=== PATIENT | male | born 1950 | race Caucasian/White ===

== ENCOUNTER → 2022-12-01 | Outpatient (CLI) | payer OTHER ==
[2022-12-01 13:24] LABS: INR 2.8 (<1.2)
== END | disposition home or self-care (01) ==
LOC: LABWHC1 11:24
PROVIDERS: ATTEND Student in an Organized Health Care Education/Training Program
DX: I48.91 Unspecified atrial fibrillation (principal)
CPT/HCPCS: 36415; 85610

== ENCOUNTER → 2023-06-01 | Outpatient (CLI) | payer MEDICARE ==
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
== END ==
LOC: 3 N SLEEP 10:09
PROVIDERS: ATTEND Internal Medicine Critical Care Medicine
DX: G47.33 Obstructive sleep apnea (adult) (pediatric) (principal); G47.36 Sleep related hypoventilation in conditions classified elsewhere; G47.10 Hypersomnia, unspecified; I48.91 Unspecified atrial fibrillation; E11.9 Type 2 diabetes mellitus without complications; I10 Essential (primary) hypertension; E78.5 Hyperlipidemia, unspecified; Z86.718 Personal history of other venous thrombosis and embolism; Z86.711 Personal history of pulmonary embolism

== ENCOUNTER → 2023-09-06 | Outpatient (CLI) | payer MEDICARE ==
[2023-09-06 15:54] LABS: NT-Pro-B-Type Natriuretic Pept 178 pg/mL (0-125)
[2023-09-06 16:17] LABS: HCT 41.5 % (39.6-50.0); HGB 13.7 g/dL (13.0-17.0); MCH 29.9 pg (27.0-32.0); MCV 90.6 FL (80.0-97.0); Mean Platelet Volume 11.4 FL (9.5-12.2); NRBC Per 100 WBC 0 X 10*3/uL (0.00-0.01); Platelet Count 295 X 10*3/uL (140-440); RBC 4.58 X 10*6/uL (4.40-5.60); RDW 13.5 % (11.5-14.5); WBC 10.49 X 10*3/uL (4.50-10.00)
[2023-09-06 16:32] LABS: Blood Urea Nitrogen 15.6 mg/dL (9.0-27.0); Chol/HDL Ratio 5.41 Ratio; Glucose 239 mg/dL (70-110); LDL Cholesterol,Calculated 129.5 mg/dL (0.0-131.0)
[2023-09-06 16:33] LABS: ALT 54 U/L (10-49); AST 45 U/L (14-35); Albumin/Globulin Ratio 1.05 Ratio (1.60-3.17); Alkaline Phosphatase 116 U/L (41-126); Calcium 9.2 mg/dL (8.7-10.3); Carbon Dioxide 24.6 mmol/L (21.6-31.8); Chloride 99 mmol/L (96-109); Globulin 3.8 g/dL (1.6-3.3); Potassium 4.1 mmol/L (3.5-5.5); Sodium 136 mmol/L (135-145); Total Bilirubin 0.3 mg/dL (0.3-1.2); Total Protein 7.8 g/dL (6.2-8.2)
== END | disposition home or self-care (01) ==
LOC: LABWHC1 08:35
PROVIDERS: ATTEND Student in an Organized Health Care Education/Training Program
DX: E11.9 Type 2 diabetes mellitus without complications (principal); I50.9 Heart failure, unspecified
CPT/HCPCS: 36415; 80053; 80061; 83036; 83880; 85027

== ENCOUNTER 2024-06-01 12:09 | Inpatient (IN) | payer MEDICARE ==
--- NOTE | 2024-06-01 12:28 | ED ---
General Adult HPI - General Chief complaint: Shortness of Breath Stated complaint: cough Time Seen by Provider: 06/01/24 12:12 Source: patient, RN notes reviewed Mode of arrival: EMS Limitations: no limitations - History of Present Illness Initial comments: Patient is a 74-year-old male presenting to the emergency department with cough and dyspnea. Patient presented from urgent care. Symptoms have been present for a couple of weeks. Patient has yellow/green sputum. No fevers at home. Patient did go to urgent care and was sent here secondary to concerns for high blood sugar. Patient states he has not been monitoring that lately. No chest pain. Patient denies any history of atrial fibrillation or dysrhythmia. - Related Data Allergies Allergy/AdvReac Type Severity Reaction Status Date / Time No Known Allergies Allergy Verified 06/01/24 12:21 Review of Systems ROS Statement: Those systems with pertinent positive or pertinent negative responses have been documented in the HPI. ROS Other: All systems not noted in ROS Statement are negative. Constitutional: Denies: fever, chills Eyes: Denies: eye pain ENT: Denies: ear pain Respiratory: Reports: as per HPI, cough, dyspnea Cardiovascular: Denies: chest pain, palpitations Endocrine: Reports: fatigue Gastrointestinal: Denies: abdominal pain Musculoskeletal: Denies: back pain Past Medical History Past Medical History: Diabetes Mellitus, Hyperlipidemia, Hypertension Past Surgical History: Heart Catheterization Additional Past Surgical History / Comment(s): AICD Smoking Status: Former smoker General Exam Limitations: no limitations General appearance: alert, in no apparent distress Head exam: Present: normocephalic Eye exam: Present: normal appearance Neck exam: Present: normal inspection Respiratory exam: Present: normal lung sounds bilaterally. Absent: respiratory distress Cardiovascular Exam: Present: tachycardia, irregular rhythm GI/Abdominal exam: Present: soft. Absent: tenderness Extremities exam: Present: normal inspection. Absent: pedal edema, calf tenderness Neurological exam: Present: alert Psychiatric exam: Present: normal affect, normal mood Skin exam: Present: normal color Course Vital Signs 06/01/24 06/01/24 06/01/24 12:16 12:21 12:53 Temperature 99.6 F 99.6 F Pulse Rate 118 H 98 Respiratory 20 16 18 Rate Blood Pressure 145/90 138/76 O2 Sat by Pulse 88 L 91 L Oximetry 06/01/24 13:21 Temperature 98.1 F Pulse Rate 100 Respiratory 20 Rate Blood Pressure 130/76 O2 Sat by Pulse 98 Oximetry Medical Decision Making - Medical Decision Making phototypesetting equipment monitor shows A-fib with RVR. Patient placed on the monitor secondary to tachycardia and hypoxia and to monitor for dysrhythmia. Repeat EKG interpreted by myself still shows A-fib with a rate of 106. Normal axis. Normal QRS. No acute ST change.. PVC present. Was pt. sent in by a medical professional or institution (, PA, COMMERCIAL LOAN ANALYST, urgent care, hospital, or longterm...) When possible be specific @ -No Did you speak to anyone other than the patient for history (EMS, parent, family, police, friend...)? What history was obtained from this source @ -No Did you review nursing and triage notes (agree or disagree)? Why? @ -I reviewed and agree with nursing and triage notes Were old charts reviewed (outside hosp., previous admission, EMS record, old EKG, old radiological studies, urgent care reports/EKG's, longterm records)? Report findings @ -No significant old charts available Differential Diagnosis (chest pain, altered mental status, abdominal pain women, abdominal pain men, vaginal bleeding, weakness, fever, dyspnea, syncope, headache, dizziness, GI bleed, back pain, seizure, CVA, palpatations, mental health, musculoskeletal)? @ -Differential Dyspnea: Coronary syndrome, arrhythmia, tamponade, asthma, COPD, pulmonary embolism, pneumonia, pneumothorax, pulmonary effusion, anaphylaxis, diabetic ketoacidosis, flailed chest, pulmonary contusion, diaphragmatic rupture, anemia, neuromuscular, this is not meant to be an all-inclusive list. EKG interpreted by me (3pts min.). @ -As above X-rays interpreted by me (1pt min.). @ -X-ray shows right-sided infiltrate CT interpreted by me (1pt min.). @ -None done U/S interpreted by me (1pt. min.). @ -None done What testing was considered but not performed or refused? (CT, X-rays, U/S, labs)? Why? @ -None What meds were considered but not given or refused? Why? @ -None Did you discuss the management of the patient with other professionals (professionals i.e. , JOELLE, COMMERCIAL LOAN ANALYST, lab, RT, psych nurse, licensed social worker, shellac polisher, teacher, ict customer support officer, registered nurse hh case manager)? Give summary @ -Case was discussed with Dr. Hart who will admit his patient Was smoking cessation discussed for >3mins.? @ -No Was critical care preformed (if so, how long)? @ -31 minutes critical care Were there social determinants of health that impacted care today? How? (Homelessness, low income, unemployed, alcoholism, drug addiction, transportatio n, low edu. Level, literacy, decrease access to med. care, [facility]cc, rehab)? @ -No Was there de-escalation of care discussed even if they declined (Discuss DNR or withdrawal of care, Hospice)? DNR status @ -No What co-morbidities impacted this encounter? (DM, HTN, Smoking, COPD, CAD, Cancer, CVA, ARF, Chemo, Hep., AIDS, mental health diagnosis, sleep apnea, morbid obesity)? @ -History of diabetes. History of cardiac disease Was patient admitted / discharged? Hospital course, mention meds given and route, prescriptions, significant lab abnormalities, going to OR and other pertinent info. @ -Patient presents with cough and shortness of breath. Patient has positive flu however elevated white blood cell count and pneumonia concerning for potential combined bacterial infection and sepsis. Blood culture and lactic acid have been ordered. IV antibiotics will be ordered. Patient also has new onset A-fib. Patient is coagulopathic and Coumadin will be held. Patient is on Cardizem drip. Cardiac consult will be placed. Patient is also hyperglycemic and will be provided insulin. Undiagnosed new problem with uncertain prognosis? @ -No Drug Therapy requiring intensive monitoring for toxicity (Heparin, Nitro, Insulin, Cardizem)? @ -Cardizem drip Were any procedures done? @ -No Diagnosis/symptom? @ -New onset A-fib with RVR, influenza, pneumonia, sepsis, hyperglycemia Acute, or Chronic, or Acute on Chronic? @ -Acute, acute, acute, acute, acute, acute on chronic Uncomplicated (without systemic symptoms) or Complicated (systemic symptoms)? @ -Complicated with concern for sepsis and new onset Side effects of treatment? @ -No Exacerbation, Progression, or Severe Exacerbation? @ -No Poses a threat to life or bodily function? How? (Chest pain, [place], [place], pneumonia, PE, COPD, DKA, ARF, appy, cholecystitis, CVA, Diverticulitis, Homicidal, Suicidal, threat to staff... and all critical care pts) @ -Pulmonary and cardiac function - Lab Data Result diagrams: 06/01/24 12:23 06/01/24 12:23 Lab Results 06/01/24 06/01/24 06/01/24 Range/Units 12:23 12:23 12:23 WBC 20.5 H (3.8-10.6) k/uL RBC 4.22 L (4.30-5.90) m/uL Hgb 12.8 L (13.0-17.5) gm/dL Hct 39.1 (39.0-53.0) % MCV 92.6 (80.0-100.0) fL MCH 30.2 (25.0-35.0) pg MCHC 32.6 (31.0-37.0) g/dL RDW 13.1 (11.5-15.5) % Plt Count 574 H (150-450) k/uL MPV 7.5 Neutrophils % 86 % Lymphocytes % 9 % Monocytes % 3 % Eosinophils % 1 % Basophils % 0 % Neutrophils # 17.7 H (1.3-7.7) k/uL Lymphocytes # 1.8 (1.0-4.8) k/uL Monocytes # 0.6 (0-1.0) k/uL Eosinophils # 0.1 (0-0.7) k/uL Basophils # 0.1 (0-0.2) k/uL PT 66.7 H (10.0-12.5) sec INR 6.7 H* (<1.2) APTT 50.3 H (22.0-30.0) sec Sodium 134 L (137-145) mmol/L Potassium 4.1 (3.5-5.1) mmol/L Chloride 95 L (98-107) mmol/L Carbon Dioxide 27 (22-30) mmol/L Anion Gap 12 mmol/L BUN 22 H (9-20) mg/dL Creatinine 0.74 (0.66-1.25) mg/dL Est GFR (CKD-EPI)AfAm >90 (>60 ml/min/1.73 sqM) Est GFR (CKD-EPI)NonAf >90 (>60 ml/min/1.73 sqM) Glucose 443 H (74-99) mg/dL Plasma Lactic Acid Quentin (0.7-2.0) mmol/L Calcium 8.7 (8.4-10.2) mg/dL Magnesium 1.5 L (1.6-2.3) mg/dL Total Bilirubin 0.5 (0.2-1.3) mg/dL AST 26 (17-59) U/L ALT 24 (4-49) U/L Alkaline Phosphatase 127 H (38-126) U/L Troponin I (0.000-0.034) ng/mL NT-Pro-B Natriuret Pep 782 pg/mL Total Protein 7.2 (6.3-8.2) g/dL Albumin 3.6 (3.5-5.0) g/dL Urine Color Urine Appearance (Clear) Urine pH (5.0-8.0) Ur Specific [place] (1.001-1.035) Urine Protein (Negative) Urine Glucose (UA) (Negative) Urine Ketones (Negative) Urine Blood (Negative) Urine Nitrite (Negative) Urine Bilirubin (Negative) Urine Urobilinogen (<2.0) mg/dL Ur Leukocyte Esterase (Negative) Urine RBC (0-5) /hpf Urine WBC (0-5) /hpf Ur Squamous Epith Cells (0-4) /hpf Acetone, Qual Negative (Negative) Influenza Type A (PCR) (Not Detectd) Influenza Type B (PCR) (Not Detectd) RSV (PCR) (Not Detectd) SARS-CoV-2 (PCR) (Not Detectd) 06/01/24 06/01/24 06/01/24 Range/Units 12:23 12:23 12:23 WBC (3.8-10.6) k/uL RBC (4.30-5.90) m/uL Hgb (13.0-17.5) gm/dL Hct (39.0-53.0) % MCV (80.0-100.0) fL MCH (25.0-35.0) pg MCHC (31.0-37.0) g/dL RDW (11.5-15.5) % Plt Count (150-450) k/uL MPV Neutrophils % % Lymphocytes % % Monocytes % % Eosinophils % % Basophils % % Neutrophils # (1.3-7.7) k/uL Lymphocytes # (1.0-4.8) k/uL Monocytes # (0-1.0) k/uL Eosinophils # (0-0.7) k/uL Basophils # (0-0.2) k/uL PT (10.0-12.5) sec INR (<1.2) APTT (22.0-30.0) sec Sodium (137-145) mmol/L Potassium (3.5-5.1) mmol/L Chloride (98-107) mmol/L Carbon Dioxide (22-30) mmol/L Anion Gap mmol/L BUN (9-20) mg/dL Creatinine (0.66-1.25) mg/dL Est GFR (CKD-EPI)AfAm (>60 ml/min/1.73 sqM) Est GFR (CKD-EPI)NonAf (>60 ml/min/1.73 sqM) Glucose (74-99) mg/dL Plasma Lactic Acid Quentin 1.8 (0.7-2.0) mmol/L Calcium (8.4-10.2) mg/dL Magnesium (1.6-2.3) mg/dL Total Bilirubin (0.2-1.3) mg/dL AST (17-59) U/L ALT (4-49) U/L Alkaline Phosphatase (38-126) U/L Troponin I <0.012 (0.000-0.034) ng/mL NT-Pro-B Natriuret Pep pg/mL Total Protein (6.3-8.2) g/dL Albumin (3.5-5.0) g/dL Urine Color Urine Appearance (Clear) Urine pH (5.0-8.0) Ur Specific [place] (1.001-1.035) Urine Protein (Negative) Urine Glucose (UA) (Negative) Urine Ketones (Negative) Urine Blood (Negative) Urine Nitrite (Negative) Urine Bilirubin (Negative) Urine Urobilinogen (<2.0) mg/dL Ur Leukocyte Esterase (Negative) Urine RBC (0-5) /hpf Urine WBC (0-5) /hpf Ur Squamous Epith Cells (0-4) /hpf Acetone, Qual (Negative) Influenza Type A (PCR) Detected A (Not Detectd) Influenza Type B (PCR) Not Detected (Not Detectd) RSV (PCR) Not Detected (Not Detectd) SARS-CoV-2 (PCR) Not Detected (Not Detectd) 06/01/24 Range/Units 12:37 WBC (3.8-10.6) k/uL RBC (4.30-5.90) m/uL Hgb (13.0-17.5) gm/dL Hct (39.0-53.0) % MCV (80.0-100.0) fL MCH (25.0-35.0) pg MCHC (31.0-37.0) g/dL RDW (11.5-15.5) % Plt Count (150-450) k/uL MPV Neutrophils % % Lymphocytes % % Monocytes % % Eosinophils % % Basophils % % Neutrophils # (1.3-7.7) k/uL Lymphocytes # (1.0-4.8) k/uL Monocytes # (0-1.0) k/uL Eosinophils # (0-0.7) k/uL Basophils # (0-0.2) k/uL PT (10.0-12.5) sec INR (<1.2) APTT (22.0-30.0) sec Sodium (137-145) mmol/L Potassium (3.5-5.1) mmol/L Chloride (98-107) mmol/L Carbon Dioxide (22-30) mmol/L Anion Gap mmol/L BUN (9-20) mg/dL Creatinine (0.66-1.25) mg/dL Est GFR (CKD-EPI)AfAm (>60 ml/min/1.73 sqM) Est GFR (CKD-EPI)NonAf (>60 ml/min/1.73 sqM) Glucose (74-99) mg/dL Plasma Lactic Acid Quentin (0.7-2.0) mmol/L Calcium (8.4-10.2) mg/dL Magnesium (1.6-2.3) mg/dL Total Bilirubin (0.2-1.3) mg/dL AST (17-59) U/L ALT (4-49) U/L Alkaline Phosphatase (38-126) U/L Troponin I (0.000-0.034) ng/mL NT-Pro-B Natriuret Pep pg/mL Total Protein (6.3-8.2) g/dL Albumin (3.5-5.0) g/dL Urine Color Light Yellow Urine Appearance Clear (Clear) Urine pH 5.5 (5.0-8.0) Ur Specific [place] 1.025 (1.001-1.035) Urine Protein Trace H (Negative) Urine Glucose (UA) 4+ H (Negative) Urine Ketones Negative (Negative) Urine Blood Small H (Negative) Urine Nitrite Negative (Negative) Urine Bilirubin Negative (Negative) Urine Urobilinogen <2.0 (<2.0) mg/dL Ur Leukocyte Esterase Negative (Negative) Urine RBC 17 H (0-5) /hpf Urine WBC <1 (0-5) /hpf Ur Squamous Epith Cells <1 (0-4) /hpf Acetone, Qual (Negative) Influenza Type A (PCR) (Not Detectd) Influenza Type B (PCR) (Not Detectd) RSV (PCR) (Not Detectd) SARS-CoV-2 (PCR) (Not Detectd) Critical Care Time Critical Care Time: Yes Disposition Clinical Impression: Pneumonia Disposition: ADMITTED IP TO THIS [facility] Condition: Serious Is patient prescribed a controlled substance at d/c from ED?: No Referrals: Melissa Hart MD [Primary Care Provider] - 1-2 days Time of Disposition: 14:26
[2024-06-01] MEDS: ACETAMINOPHEN TAB 500 MG TAB PO STA (12:43)
[2024-06-01] MEDS: DILTIAZEM 125 MG in SODIUM CHLORIDE 0.9% 100 ML IV SCH (12:44)
[2024-06-01 12:58] LABS: Basophils # (A) 0.1 k/uL (0-0.2); Basophils % (A) 0 %; Eosinophils # (A) 0.1 k/uL (0-0.7); Eosinophils % (A) 1 %; HCT 39.1 % (39.0-53.0); HGB 12.8 gm/dL (13.0-17.5); Lymphocytes # (A) 1.8 k/uL (1.0-4.8); Lymphocytes % (A) 9 %; MCH 30.2 pg (25.0-35.0); MCHC 32.6 g/dL (31.0-37.0); MCV 92.6 fL (80.0-100.0); Mean Platelet Volume 7.5; Monocytes # (A) 0.6 k/uL (0-1.0); Monocytes % (A) 3 %; Neutrophils # (A) 17.7 k/uL (1.3-7.7); Neutrophils % (A) 86 %; Platelet Count 574 k/uL (150-450); RBC 4.22 m/uL (4.30-5.90); RDW 13.1 % (11.5-15.5); WBC 20.5 k/uL (3.8-10.6)
[2024-06-01 13:06] LABS: Appearance,Urine Clear (Clear); Bilirubin,Urine Negative (Negative); Blood,Urine Small (Negative); Color,Urine Light Yellow; Glucose,Urine (UA) 4+ (Negative); Ketones,Urine Negative (Negative); Leukocyte Esterase,Urine Negative (Negative); Nitrite,Urine Negative (Negative); PH, Urine 5.5 (5.0-8.0); Protein,Urine Trace (Negative); RBC,Urine 17 /hpf (0-5); Specific Gravity,Urine 1.025 (1.001-1.035); Squamous Epithelial Cell,Urine <1 /hpf (0-4); Urobilinogen,Urine <2.0 mg/dL (<2.0); WBC,Urine <1 /hpf (0-5)
[2024-06-01 13:14] LABS: Partial Thromboplastin Time 50.3 sec (22.0-30.0); Prothrombin Time 66.7 sec (10.0-12.5)
--- NOTE | 2024-06-01 13:14 | XR ---
EXAMINATION TYPE: XR chest 1V portable DATE OF EXAM: 06/01/2024 1:08 PM COMPARISON: None TECHNIQUE: XR chest 1V portable Portable AP radiograph of the chest. CLINICAL INDICATION:Male, 74 years old with history of difficulty breathing; FINDINGS: Lungs/Pleura: No pleural effusion or pneumothorax. Patchy right lower lung airspace opacities. Pulmonary vascularity: Unremarkable. Heart/mediastinum: Cardiomediastinal silhouette is prominent in size. Single-lead cardiac conduction device overlying the left hemithorax with lead projecting over the right ventricle. Musculoskeletal: No acute osseous pathology. IMPRESSION: Patchy right lower lung airspace opacities concerning for pneumonia versus atelectasis. [facility], , 06/01/2024 1:11 PM
[2024-06-01 13:22] LABS: INR 6.7 (<1.2)
[2024-06-01 13:31] LABS: ALT 24 U/L (4-49); AST 26 U/L (17-59); African American GFR (CKD) >90 (>60 ml/min/1.73 sqM); Albumin 3.6 g/dL (3.5-5.0); Alkaline Phosphatase 127 U/L (38-126); Anion Gap 12 mmol/L; Blood Urea Nitrogen 22 mg/dL (9-20); Calcium 8.7 mg/dL (8.4-10.2); Carbon Dioxide 27 mmol/L (22-30); Chloride 95 mmol/L (98-107); Glucose 443 mg/dL (74-99); Magnesium 1.5 mg/dL (1.6-2.3); Non-African American GFR(CKD) >90 (>60 ml/min/1.73 sqM); Potassium 4.1 mmol/L (3.5-5.1); Sodium 134 mmol/L (137-145); Total Bilirubin 0.5 mg/dL (0.2-1.3); Total Protein 7.2 g/dL (6.3-8.2)
[2024-06-01 13:35] LABS: NT-Pro-B-Type Natriuretic Pept 782 pg/mL
[2024-06-01] MEDS ORDERED: PNEUMONIA PROTOCOL UTILIZED 1 EACH MISC PO PRN (14:26)
[2024-06-01] MEDS ORDERED: IPRATROPIUM-ALBUTEROL 3 ML NEB INHALATION PRN (14:26)
[2024-06-01] MEDS: INSULIN REGULAR 100 UNIT/ML VIAL (IM/SQ) SQ ONE (14:54)
[2024-06-01] MEDS: AZITHROMYCIN 500 MG in SODIUM CHLORIDE 0.9% 250 ML IVPB STA (14:55)
[2024-06-01] MEDS: SODIUM CHLORIDE 0.9% 1,000 ML IV SCH (15:05)
--- NOTE | 2024-06-01 16:42 | P.CNPUL ---
History of Present Illness Consult date: 06/01/24 Requesting physician: Melissa Hart Reason for consult: dyspnea, cough, abnormal CXR/CT Chief complaint: Shortness of breath, cough, congestion History of present illness: This is a very pleasant 74-year-old male patient with a known history of atrial fibrillation and maintained on warfarin, AICD placement, hypertension, hyperlipidemia, diabetes mellitus. He has a 3-week history of increasing shortness of breath, cough and congestion. He presented here to the emergency room with worsening shortness of breath. X-ray does reveal a patchy right lower lobe airspace opacity concerning for pneumonia versus atelectasis. He did have some atrial fibrillation with has been initiated on Cardizem drip at 5 mg/h. White count 20.5. Hemoglobin 12.8. Platelets 574. INR 6.7. Sodium 134. Potassium 4.1. Bicarb 27. BUN 22. Creatinine 0.7. Glucose 443. Troponin negative x 1. proBNP 782. Urinalysis with 4+ ketones. Acetone negative. Viral screening positive for influenza A. He is seen today in consultation in the emergency department. He is currently sitting up on a stretcher. Awake and alert in mild respiratory distress. He has a loose nonproductive cough. He is maintaining O2 saturations in the 90s on 2 L/min per nasal cannula. He has been afebrile. Hemodynamically stable. Review of Systems REVIEW OF SYSTEMS: CONSTITUTIONAL: Denies any recent significant weight loss or weight gain. EYES: Denies change in vision. EARS, NOSE, MOUTH, THROAT: Denies headaches, denies sore throat. CARDIOVASCULAR: Denies chest pain, palpitations or syncopal episodes. RESPIRATORY: Positive for shortness of breath, cough, congestion no hemoptysis. GASTROINTESTINAL: Denies change in appetite, denies abdominal pain GENITOURINARY: Denies hematuria, denies infections. MUSKULOSKELETAL: Denies pain, denies swelling. INTEGUMENTARY: Denies rash, denies eczema. NEUROLOGICAL: Denies recent memory loss, no recent seizure activity. PSYCHIATRIC: Denies anxiety, denies depression. HEMATOLOGIC/LYMPHATIC: Denies anemia, denies enlarged lymph nodes. Past Medical History Past Medical History: Diabetes Mellitus, Hyperlipidemia, Hypertension Past Surgical History: Heart Catheterization Additional Past Surgical History / Comment(s): AICD Smoking Status: Former smoker Medications and Allergies Home Medications Medication Instructions Recorded Confirmed Type Atorvastatin [Lipitor] 80 mg PO DAILY 06/01/24 06/01/24 History Losartan [Cozaar] 50 mg PO DAILY 06/01/24 06/01/24 History Metoprolol Succinate (ER) [Toprol 25 mg PO DAILY 06/01/24 06/01/24 History Xl] Multivitamins, Thera [Multivitamin 1 tab PO DAILY 06/01/24 06/01/24 History (formulary)] Semaglutide [Ozempic] 0.5 mg SQ TH 06/01/24 06/01/24 History Sotalol [Betapace] 80 mg PO BID 06/01/24 06/01/24 History Warfarin [Coumadin] 5 mg PO W/SUPPER 06/01/24 06/01/24 History amLODIPine [Norvasc] 10 mg PO DAILY 06/01/24 06/01/24 History glipiZIDE 5 mg PO AC-BID 06/01/24 06/01/24 History hydroCHLOROthiazide [Hydrodiuril] 50 mg PO DAILY 06/01/24 06/01/24 History metFORMIN HCL [Glucophage] 1,000 mg PO BID-W/MEALS 06/01/24 06/01/24 History Allergies Allergy/AdvReac Type Severity Reaction Status Date / Time No Known Allergies Allergy Verified 06/01/24 14:51 Physical Exam Vitals: Vital Signs Temp Pulse Resp BP Pulse Ox 06/01/24 15:35 98.4 F 81 19 106/60 93 L 06/01/24 15:00 100 20 166/72 93 L 06/01/24 13:21 98.1 F 100 20 130/76 98 06/01/24 12:53 18 06/01/24 12:21 99.6 F 98 16 138/76 91 L 06/01/24 12:16 99.6 F 118 H 20 145/90 88 L Intake and Output 06/01/24 06/01/24 06/01/24 06:59 14:59 22:59 Other: Weight 104.326 kg GENERAL EXAM: Alert, pleasant 74-year-old male, on 2 L nasal cannula, fairly comfortable in no apparent distress. HEAD: Normocephalic. EYES: Normal reaction of pupils, equal size. NOSE: Clear with pink turbinates. THROAT: No erythema or exudates. NECK: No masses, no JVD. CHEST: No chest wall deformity. Device palpated under left clavicle. LUNGS: Equal air entry with bilateral scattered rhonchi. CVS: S1 and S2 normal with no audible murmur, irregular rhythm. ABDOMEN: No hepatosplenomegaly, normal bowel sounds, no guarding or rigidity. SPINE: No scoliosis or deformity SKIN: No rashes CENTRAL NERVOUS SYSTEM: No focal deficits, tone is normal in all 4 extremities. EXTREMITIES: There is no peripheral edema. No clubbing, no cyanosis. Peripheral pulses are intact. Results - Laboratory Findings CBC and BMP: 06/01/24 12:23 06/01/24 12:23 PT/INR, D-dimer PT 66.7 sec (10.0-12.5) H 06/01/24 12:23 INR 6.7 (<1.2) H* 06/01/24 12:23 Abnormal lab findings: Abnormal Labs 06/01/24 06/01/24 06/01/24 12:23 12:23 12:23 WBC 20.5 H RBC 4.22 L Hgb 12.8 L Plt Count 574 H Neutrophils # 17.7 H PT 66.7 H INR 6.7 H* APTT 50.3 H Sodium 134 L Chloride 95 L BUN 22 H Glucose 443 H Magnesium 1.5 L Alkaline Phosphatase 127 H Urine Protein Urine Glucose (UA) Urine Blood Urine RBC Influenza Type A (PCR) 06/01/24 06/01/24 12:23 12:37 WBC RBC Hgb Plt Count Neutrophils # PT INR APTT Sodium Chloride BUN Glucose Magnesium Alkaline Phosphatase Urine Protein Trace H Urine Glucose (UA) 4+ H Urine Blood Small H Urine RBC 17 H Influenza Type A (PCR) Detected A - Diagnostic Findings Chest x-ray: image reviewed Assessment and Plan Assessment: Acute hypoxic respiratory failure secondary to an acute influenza A infection complicated by possible patchy early infiltrate in the right lower lobe. Procalcitonin pending Acute influenza A infection however symptoms started as long as 3 weeks ago Leukocytosis secondary to above Acute on chronic atrial fibrillation with a rapid ventricular response, currently on a Cardizem drip at 5 mg an hour Diabetes mellitus with hyperglycemia, 4+ ketones acetone negative Coagulopathy with supra therapeutic INR at 6.7 History of AICD placement Hypertension Hyperlipidemia Plan: The patient was seen and evaluated Chest x-ray, labs and medications reviewed Outside the window for Tamiflu Continue ceftriaxone and azithromycin for now Check a procalcitonin Continued on a Cardizem drip. Maintained on warfarin, currently on hold for INR 6.3 Resume the patient's home medications Titrate the FiO2 as tolerated We will continue to follow and make further recommendations based on his clinical status I have personally seen and examined the patient, performed the documentation and the assessment and plan as written. Number of minutes spent on the visit: 20 Dictation was produced using [employer] dictation software. Please excuse any grammatical, word or spelling errors. This patient was seen in coordination with the pulmonary/critical care physician, Dr. Perez. He did spend greater than 50% of the time evaluating, examining and developing the plan of care. He agrees to the above HPI, physical exam, assessment and plan of care as dictated by the nurse practitioner. Time with Patient: Greater than 30
[2024-06-01 17:53] LABS: Glucose,Whole Blood 313 mg/dL (70-110)
[2024-06-01] MEDS: glipiZIDE 5 MG TAB PO SCH (18:10)
[2024-06-01] MEDS: metFORMIN 500 MG TAB PO SCH (18:10)
[2024-06-01 20:17] LABS: Glucose,Whole Blood 214 mg/dL (70-110)
[2024-06-01] MEDS: MELATONIN 3 MG TABLET PO SCH (21:47)
[2024-06-01] MEDS: SOTALOL 80 MG TAB PO SCH (21:48)
[2024-06-01] MEDS: guaiFENesin-DM 100-10MG/5ML 10 ML CUP PO PRN (23:09)
[2024-06-02 05:34] LABS: Glucose,Whole Blood 204 mg/dL (70-110)
--- NOTE | 2024-06-02 07:40 | XR ---
EXAMINATION TYPE: XR chest 2V DATE OF EXAM: 06/02/2024 6:58 AM COMPARISON: Chest x-ray from one day earlier CLINICAL INDICATION: Male, 74 years old with history of pneumonia, TECHNIQUE: Frontal and lateral views of the chest are obtained. FINDINGS: There is patchy bibasilar opacity on current study. Persistent mild cardiomegaly with [place] lead pacemaker/AICD. Osseous structures are intact. IMPRESSION: Bibasilar acute infiltrates and/or atelectasis present currently. [facility], , 06/02/2024 7:38 AM
[2024-06-02] MEDS ORDERED: METOPROLOL SUCCINATE (ER) 25 MG TAB.ER.24H PO SCH (09:00)
[2024-06-02] MEDS: amLODIPine 10 MG TAB PO SCH (09:01)
[2024-06-02] MEDS: METOPROLOL SUCCINATE (ER) 50 MG TAB.ER.24H PO SCH (09:01)
[2024-06-02] MEDS: LOSARTAN 50 MG TAB PO SCH (09:01)
[2024-06-02] MEDS: MULTIVITAMINS, THERA 1 EACH TAB PO SCH (09:03)
[2024-06-02] MEDS: ATORVASTATIN 80 MG TAB PO SCH (09:03)
[2024-06-02 09:45] LABS: INR 4.1 (<1.2); Prothrombin Time 40.9 sec (10.0-12.5)
[2024-06-02 11:14] LABS: Glucose,Whole Blood 325 mg/dL (70-110)
--- NOTE | 2024-06-02 12:15 | P.CRDCN ---
History of Present Illness History of present illness: HISTORY OF PRESENT ILLNESS: This is a 74-year-old male with a past medical history significant for paroxysmal atrial fibrillation, pulmonary embolism, cardiac arrest s/p secondary prevention ICD, hypertension, hyperlipidemia, and diabetes. Patient follows in the office with Dr. Sigala. We have been asked to see the patient in consultation for atrial fibrillation. Patient examined at the bedside. Patient presented to the hospital with a chief complaint of shortness of breath. Patient states he has been feeling short of breath for the past couple weeks. He denies having any chest pain or pressure. He denies having any palpitations. The patient was found to be positive for influenza. Pulmonary is also following for possible early right lower lobe pneumonia. He remains on antibiotics. He is maintaining sinus mechanism this morning with PACs and PVCs. Patient was found to have supratherapeutic INR of 6.7. His Coumadin remains on hold. When the patient was seen in the office in March he was prescribed Xarelto as he stated his insurance had improved and could afford it. However the patient states he never started taking this medication and continued with his warfarin. DIAGNOSTICS: - EKG reveals reveals sinus mechanism with PACs - Chest xray patchy right lower lung airspace opacities concerning for pneumonia versus atelectasis - Laboratory data: WBC 20.5. Hemoglobin 12.8. Platelet count 574. INR 6.7. Repeat 4.1. Sodium 134. Potassium 4.1. BUN 22. Creatinine 0.74. Troponin negative x 1. proBNP 782. - Current home cardiac medications include Lipitor 80 mg daily, amlodipine 10 mg daily, hydrochlorothiazide 50 mg daily, metoprolol succinate 25 mg daily, sotalol 80 mg twice a day, losartan 50 mg daily, warfarin 5 mg daily - Most recent echocardiogram obtained in March 2023 revealed ejection fraction 55%, grade 1 diastolic dysfunction, mild to moderate MR and mild to moderate AR - Cardiac catheterization history: Unknown REVIEW OF SYSTEMS: At the time of my exam: CONSTITUTIONAL: Denies fever or chills. HEENT: Denies blurred vision, vision changes, or eye pain. Denies hemoptysis CARDIOVASCULAR: Denies chest pain. Denies orthopnea. Denies PND. Denies palpitations RESPIRATORY: Denies shortness of breath. GASTROINTESTINAL: Denies abdominal pain. Denies nausea or vomiting. HEMATOLOGIC: Denies bleeding disorders. GENITOURINARY: Denies any blood in urine. SKIN: Denies pruitis. Denies rash. PHYSICAL EXAM: VITAL SIGNS: Reviewed. GENERAL: Well-developed in no acute distress. HEENT: Head is normocephalic. Pupils are equal, round. Sclerae anicteric. Mucous membranes of the mouth are moist. Neck supple. No JVD or thyromegaly LUNGS: Respirations even and unlabored. Lungs essentially clear to auscultation bilaterally. HEART: Regular rate and rhythm. S1 and S2 heard. ABDOMEN: Soft. Nondistended. Nontender. EXTREMITIES: Normal range of motion. No clubbing or cyanosis. Peripheral pulses intact. No lower extremity edema NEUROLOGIC: Awake and alert. Oriented x 3. ASSESSMENT: Shortness of breath Acute influenza Possible right lower lobe pneumonia Paroxysmal atrial fibrillation, maintaining sinus mechanism with PACs Supratherapeutic INR History of pulmonary embolism/DVT History of cardiopulmonary arrest, 2019, secondary to massive PE Status post secondary prevention ICD Hypertension Hyperlipidemia Obstructive sleep apnea Diabetes Obesity: BMI 32.1 PLAN: Obtain 2D echo to assess cardiac structure and function Discontinue IV Cardizem Continue metoprolol succinate. Increase dosage to 50 mg daily for optimal heart rate control Continue to hold Coumadin. Monitor INR. Begin Xarelto or Eliquis when coagulopathy resolves Continue telemetry monitoring Further recommendations pending patient course Nurse practitioner note has been reviewed by physician. Signing provider agrees with the documented findings, assessment, and plan of care documented by [employer] as a scribe. Past Medical History Past Medical History: Diabetes Mellitus, Hyperlipidemia, Hypertension Additional Past Medical History / Comment(s): Blood clot post-op History of Any Multi-Drug Resistant Organisms: None Reported Past Surgical History: Heart Catheterization Additional Past Surgical History / Comment(s): AICD Past Anesthesia/Blood Transfusion Reactions: No Reported Reaction Past Psychological History: No Psychological Hx Reported Smoking Status: Former smoker Medications and Allergies Home Medications Medication Instructions Recorded Confirmed Type Atorvastatin [Lipitor] 80 mg PO DAILY 06/01/24 06/01/24 History Losartan [Cozaar] 50 mg PO DAILY 06/01/24 06/01/24 History Metoprolol Succinate (ER) [Toprol 25 mg PO DAILY 06/01/24 06/01/24 History Xl] Multivitamins, Thera [Multivitamin 1 tab PO DAILY 06/01/24 06/01/24 History (formulary)] Semaglutide [Ozempic] 0.5 mg SQ TH 06/01/24 06/01/24 History Sotalol [Betapace] 80 mg PO BID 06/01/24 06/01/24 History Warfarin [Coumadin] 5 mg PO W/SUPPER 06/01/24 06/01/24 History amLODIPine [Norvasc] 10 mg PO DAILY 06/01/24 06/01/24 History glipiZIDE 5 mg PO AC-BID 06/01/24 06/01/24 History hydroCHLOROthiazide [Hydrodiuril] 50 mg PO DAILY 06/01/24 06/01/24 History metFORMIN HCL [Glucophage] 1,000 mg PO BID-W/MEALS 06/01/24 06/01/24 History Allergies Allergy/AdvReac Type Severity Reaction Status Date / Time No Known Allergies Allergy Verified 06/01/24 14:51 Physical Exam Vitals: Vital Signs Temp Pulse Pulse Resp BP BP Pulse Ox 06/02/24 08:57 98.2 F 71 16 117/60 93 L 06/02/24 04:00 97.7 F 97 16 129/72 93 L 06/02/24 00:00 99.1 F 94 16 130/65 92 L 06/01/24 21:30 98.5 F 116 H 16 135/77 96 06/01/24 18:27 96.1 F L 74 16 158/85 93 L 06/01/24 17:29 99.4 F 88 19 138/61 95 06/01/24 15:35 98.4 F 81 19 106/60 93 L 06/01/24 15:00 100 20 166/72 93 L 06/01/24 13:21 98.1 F 100 20 130/76 98 06/01/24 12:53 18 06/01/24 12:21 99.6 F 98 16 138/76 91 L 06/01/24 12:16 99.6 F 118 H 20 145/90 88 L Intake and Output 06/01/24 06/02/24 06/02/24 22:59 06:59 14:59 Other: Voiding Method Toilet Urinal # Voids 2 Weight 104.326 kg 101.5 kg Results 06/01/24 12:23 06/01/24 12:23 Cardiac Enzymes 06/01/24 06/01/24 Range/Units 12:23 12:23 AST 26 (17-59) U/L Troponin I <0.012 (0.000-0.034) ng/mL Coagulation 06/01/24 06/02/24 Range/Units 12:23 09:11 PT 66.7 H 40.9 H (10.0-12.5) sec APTT 50.3 H (22.0-30.0) sec CBC 06/01/24 Range/Units 12:23 WBC 20.5 H (3.8-10.6) k/uL RBC 4.22 L (4.30-5.90) m/uL Hgb 12.8 L (13.0-17.5) gm/dL Hct 39.1 (39.0-53.0) % Plt Count 574 H (150-450) k/uL Comprehensive Metabolic Panel 06/01/24 Range/Units 12:23 Sodium 134 L (137-145) mmol/L Potassium 4.1 (3.5-5.1) mmol/L Chloride 95 L (98-107) mmol/L Carbon Dioxide 27 (22-30) mmol/L BUN 22 H (9-20) mg/dL Creatinine 0.74 (0.66-1.25) mg/dL Glucose 443 H (74-99) mg/dL Calcium 8.7 (8.4-10.2) mg/dL AST 26 (17-59) U/L ALT 24 (4-49) U/L Alkaline Phosphatase 127 H (38-126) U/L Total Protein 7.2 (6.3-8.2) g/dL Albumin 3.6 (3.5-5.0) g/dL Current Medications Generic Name Dose Route Start Last Admin Trade Name Freq PRN Reason Stop Dose Admin Albuterol/Ipratropium 3 ml 06/01/24 14:26 Ipratropium-Albuterol 3 Ml Neb INHALATION RT-Q4H PRN shortness of breath Amlodipine Besylate 10 mg 06/02/24 09:00 06/02/24 09:01 Amlodipine 10 Mg Tab PO 10 mg DAILY ABIMAEL Administration Atorvastatin Calcium 80 mg 06/02/24 09:00 06/02/24 09:03 Atorvastatin 80 Mg Tab PO 80 mg DAILY ABIMAEL Administration Azithromycin 500 mg 06/02/24 15:00 Azithromycin 500 Mg Tab PO 06/03/24 15:01 DAILY@1500 ABIMAEL Protocol Glipizide 5 mg 06/01/24 17:30 06/02/24 06:25 Glipizide 5 Mg Tab PO 5 mg AC-BID ABIMAEL Administration Guaifenesin/Dextromethorphan 10 ml 06/01/24 18:15 06/01/24 23:09 Guaifenesin-Dm 100-10mg/5ml 10 Ml Cup PO 10 ml Q6HR PRN Administration Cough Hydrochlorothiazide 50 mg 06/02/24 09:00 06/02/24 09:01 Hydrochlorothiazide 50 Mg Tab PO 50 mg DAILY ABIMAEL Administration Sodium Chloride 1,000 mls @ 100 mls/hr 06/01/24 14:30 06/02/24 04:19 Saline 0.9% IV Not Given .Q10H ABIMAEL Ceftriaxone Sodium 2 gm/ 50 mls @ 100 mls/hr 06/02/24 09:00 06/02/24 09:01 Sodium Chloride IVPB 06/05/24 09:29 100 mls/hr Q24HR ABIMAEL Administration Protocol Losartan Potassium 50 mg 06/02/24 09:00 06/02/24 09:01 Losartan 50 Mg Tab PO 50 mg DAILY ABIMAEL Administration Melatonin 6 mg 06/01/24 21:00 06/01/24 21:47 Melatonin 3 Mg Tablet PO 6 mg HS ABIMAEL Administration Metformin HCl 1,000 mg 06/01/24 17:30 06/02/24 06:24 Metformin 500 Mg Tab PO 1,000 mg BID-W/MEALS ABIMAEL Administration Metoprolol Succinate 50 mg 06/02/24 09:00 06/02/24 09:01 Metoprolol Succinate (Er) 50 Mg Tab.Er.24h PO 50 mg DAILY ABIMAEL Administration Miscellaneous Information 1 each 06/01/24 14:26 Pneumonia Protocol Utilized 1 Each Misc PO ONCE PRN Per Protocol Multivitamins 1 each 06/02/24 09:00 06/02/24 09:03 Multivitamins, Thera 1 Each Tab PO 1 each DAILY ABIMAEL Administration Sotalol HCl 80 mg 06/01/24 21:00 06/02/24 09:01 Sotalol 80 Mg Tab PO 80 mg BID ABIMAEL Administration Intake and Output 01/03/25 01/04/25 01/04/25 22:59 06:59 14:59 Other: Voiding Method Toilet Urinal # Voids 2 Weight 104.326 kg 101.5 kg 06/01/24 12:23 06/01/24 12:23
--- NOTE | 2024-06-02 12:55 | P.PN ---
Subjective Progress Note Date: 06/02/24 Principal diagnosis: Pneumonia. This is a very pleasant 74-year-old male patient with a known history of atrial fibrillation and maintained on warfarin, AICD placement, hypertension, hyperlipidemia, diabetes mellitus. He has a 3-week history of increasing shortness of breath, cough and congestion. He presented here to the emergency room with worsening shortness of breath. X-ray does reveal a patchy right lower lobe airspace opacity concerning for pneumonia versus atelectasis. He did have some atrial fibrillation with has been initiated on Cardizem drip at 5 mg/h. White count 20.5. Hemoglobin 12.8. Platelets 574. INR 6.7. Sodium 134. Potassium 4.1. Bicarb 27. BUN 22. Creatinine 0.7. Glucose 443. Troponin negative x 1. proBNP 782. Urinalysis with 4+ ketones. Acetone negative. Viral screening positive for influenza A. He is seen today in consultation in the emergency department. He is currently sitting up on a stretcher. Awake and alert in mild respiratory distress. He has a loose nonproductive cough. He is maintaining O2 saturations in the 90s on 2 L/min per nasal cannula. He has been afebrile. Hemodynamically stable. Progress note dated June 02, 2024. 74-year-old male seen in consultation yesterday. Please see the note above. Th e patient was admitted with a diagnosis of influenza, and possible pneumonia. He is currently on room air. He is not receiving any IV fluids. He did test positive for influenza A. His procalcitonin level was 0.11. Antibiotics will be discontinued. The patient is feeling well, without complaints. He states he is feeling much better. Today's blood work includes a glucose of 325. PT was 40.9 with an INR of 4.1. Blood cultures were apparently positive cocci in clusters. Bacteria has yet to be identified. Chest x-ray demonstrates bibasilar infiltrates, and/or atelectasis. Objective - Vital Signs Vital signs: Vital Signs Temp 98.4 F 06/02/24 11:05 Pulse 60 06/02/24 11:05 Resp 16 06/02/24 11:05 BP 103/58 06/02/24 11:05 Pulse Ox 96 06/02/24 11:05 FiO2 Intake & Output 01/08/2106/02/24 06/02/24 18:59 06:59 18:59 Weight 104.326 kg 101.5 kg Other: Voiding Method Toilet Toilet Urinal Urinal # Voids 2 1 - Exam No acute distress, oriented 3. HEENT examination is grossly unremarkable. Mucous membranes are moist. No oral lesions. Neck supple. Full range of motion. No adenopathy thyromegaly or neck vein di stention. Cardiovascular examination reveals an irregular rhythm and rate. S1-S2 normal. No S3 or S4. No discernible murmur noted. Lungs reveal clear breath sounds. Breath sounds are equal bilaterally. No adventitious lung sounds including wheezes rhonchi or crackles. Abdomen soft bowel sounds are heard. No masses or tenderness. Extremities are intact. No cyanosis clubbing or edema. Skin is without rash or lesion. Neurologic examination is brief but nonfocal. - Labs CBC & Chem 7: 06/01/24 12:23 06/01/24 12:23 Labs: Abnormal Lab Results - Last 24 Hours (Table) 06/01/24 06/01/24 06/01/24 Range/Units 12:23 12:23 12:23 WBC 20.5 H (3.8-10.6) k/uL RBC 4.22 L (4.30-5.90) m/uL Hgb 12.8 L (13.0-17.5) gm/dL Plt Count 574 H (150-450) k/uL Neutrophils # 17.7 H (1.3-7.7) k/uL PT 66.7 H (10.0-12.5) sec INR 6.7 H* (<1.2) APTT 50.3 H (22.0-30.0) sec Sodium 134 L (137-145) mmol/L Chloride 95 L (98-107) mmol/L BUN 22 H (9-20) mg/dL Glucose 443 H (74-99) mg/dL POC Glucose (mg/dL) (70-110) mg/dL Magnesium 1.5 L (1.6-2.3) mg/dL Alkaline Phosphatase 127 H (38-126) U/L Urine Protein (Negative) Urine Glucose (UA) (Negative) Urine Blood (Negative) Urine RBC (0-5) /hpf Influenza Type A (PCR) (Not Detectd) 06/01/24 06/01/24 06/01/24 Range/Units 12:23 12:37 17:52 WBC (3.8-10.6) k/uL RBC (4.30-5.90) m/uL Hgb (13.0-17.5) gm/dL Plt Count (150-450) k/uL Neutrophils # (1.3-7.7) k/uL PT (10.0-12.5) sec INR (<1.2) APTT (22.0-30.0) sec Sodium (137-145) mmol/L Chloride (98-107) mmol/L BUN (9-20) mg/dL Glucose (74-99) mg/dL POC Glucose (mg/dL) 313 H (70-110) mg/dL Magnesium (1.6-2.3) mg/dL Alkaline Phosphatase (38-126) U/L Urine Protein Trace H (Negative) Urine Glucose (UA) 4+ H (Negative) Urine Blood Small H (Negative) Urine RBC 17 H (0-5) /hpf Influenza Type A (PCR) Detected A (Not Detectd) 06/01/24 06/02/24 06/02/24 Range/Units 20:15 05:33 09:11 WBC (3.8-10.6) k/uL RBC (4.30-5.90) m/uL Hgb (13.0-17.5) gm/dL Plt Count (150-450) k/uL Neutrophils # (1.3-7.7) k/uL PT 40.9 H (10.0-12.5) sec INR 4.1 H (<1.2) APTT (22.0-30.0) sec Sodium (137-145) mmol/L Chloride (98-107) mmol/L BUN (9-20) mg/dL Glucose (74-99) mg/dL POC Glucose (mg/dL) 214 H 204 H (70-110) mg/dL Magnesium (1.6-2.3) mg/dL Alkaline Phosphatase (38-126) U/L Urine Protein (Negative) Urine Glucose (UA) (Negative) Urine Blood (Negative) Urine RBC (0-5) /hpf Influenza Type A (PCR) (Not Detectd) 01/04/25 Range/Units 11:13 WBC (3.8-10.6) k/uL RBC (4.30-5.90) m/uL Hgb (13.0-17.5) gm/dL Plt Count (150-450) k/uL Neutrophils # (1.3-7.7) k/uL PT (10.0-12.5) sec INR (<1.2) APTT (22.0-30.0) sec Sodium (137-145) mmol/L Chloride (98-107) mmol/L BUN (9-20) mg/dL Glucose (74-99) mg/dL POC Glucose (mg/dL) 325 H (70-110) mg/dL Magnesium (1.6-2.3) mg/dL Alkaline Phosphatase (38-126) U/L Urine Protein (Negative) Urine Glucose (UA) (Negative) Urine Blood (Negative) Urine RBC (0-5) /hpf Influenza Type A (PCR) (Not Detectd) Microbiology - Last 24 Hours (Table) 06/01/24 12:23 Blood Culture Gram Stain - Preliminary Blood Blood Culture - Preliminary Molecular ID Assessment and Plan Assessment: Acute hypoxic respiratory failure secondary to an acute influenza A infection. Doubt bacterial pneumonia. Leukocytosis secondary to above. Acute on chronic atrial fibrillation with a rapid ventricular response. Diabetes mellitus with hyperglycemia. Coagulopathy with supra therapeutic INR at 6.7. History of AICD placement. Hypertension. Hyperlipidemia. Plan: Plan dated June 02, 2024. The patient is seen in room 363. The patient is on room air. No IV fluids. The patient has a procalcitonin level of 0.11. Antibiotics are discontinued. He did test positive for influenza A, but he has been having symptoms for a number of days now. Blood cultures apparently are showing gram-positive cocci in clusters. And may be a contaminant. We will await identification. Labs, x- rays, and medications are reviewed. Prognosis is guarded. We will continue to follow the patient, make appropriate recommendations. The patient is a DO NOT RESUSCITATE patient. Time with Patient: Less than 30
--- NOTE | 2024-06-02 13:27 | P.HPIM ---
History of Present Illness H&P Date: 06/02/24 Andrez Cobb, is a 74-year-old male who presented to [facility] emergency room with a chief complaint of cough and worsening shortness of breath He was evaluated in the emergency room vital examination on presentation revealed temperature 97.7 pulse 97 respiration 16 blood pressure 129/72 pulse ox 93% on room air Laboratory data revealed a white blood count of 20.5 hemoglobin 12.8 platelet count 578 INR was elevated at 6.7 sodium 134 potassium 4.1 chloride 95 CO2 27 BUN 22 creatinine 0.74 influenza A PCR was positive Testing in the emergency room revealed chest x-ray done in the emergency room revealed patchy right lower lung airspace opacity concerning for pneumonia Patient was admitted to medical floor for further evaluation and treatment Past Medical History Past Medical History: Diabetes Mellitus, Hyperlipidemia, Hypertension Additional Past Medical History / Comment(s): Blood clot post-op History of Any Multi-Drug Resistant Organisms: None Reported Past Surgical History: Heart Catheterization Additional Past Surgical History / Comment(s): AICD Past Anesthesia/Blood Transfusion Reactions: No Reported Reaction Past Psychological History: No Psychological Hx Reported Smoking Status: Former smoker Medications and Allergies Home Medications Medication Instructions Recorded Confirmed Type Atorvastatin [Lipitor] 80 mg PO DAILY 06/01/24 06/01/24 History Losartan [Cozaar] 50 mg PO DAILY 06/01/24 06/01/24 History Metoprolol Succinate (ER) [Toprol 25 mg PO DAILY 06/01/24 06/01/24 History Xl] Multivitamins, Thera [Multivitamin 1 tab PO DAILY 06/01/24 06/01/24 History (formulary)] Semaglutide [Ozempic] 0.5 mg SQ TH 06/01/24 06/01/24 History Sotalol [Betapace] 80 mg PO BID 06/01/24 06/01/24 History Warfarin [Coumadin] 5 mg PO W/SUPPER 06/01/24 06/01/24 History amLODIPine [Norvasc] 10 mg PO DAILY 06/01/24 06/01/24 History glipiZIDE 5 mg PO AC-BID 06/01/24 06/01/24 History hydroCHLOROthiazide [Hydrodiuril] 50 mg PO DAILY 06/01/24 06/01/24 History metFORMIN HCL [Glucophage] 1,000 mg PO BID-W/MEALS 06/01/24 06/01/24 History Allergies Allergy/AdvReac Type Severity Reaction Status Date / Time No Known Allergies Allergy Verified 06/01/24 14:51 Physical Exam Vitals: Vital Signs Temp Pulse Pulse Resp BP BP Pulse Ox 06/02/24 08:57 98.2 F 71 16 117/60 93 L 06/02/24 04:00 97.7 F 97 16 129/72 93 L 06/02/24 00:00 99.1 F 94 16 130/65 92 L 06/01/24 21:30 98.5 F 116 H 16 135/77 96 06/01/24 18:27 96.1 F L 74 16 158/85 93 L 06/01/24 17:29 99.4 F 88 19 138/61 95 06/01/24 15:35 98.4 F 81 19 106/60 93 L 06/01/24 15:00 100 20 166/72 93 L 06/01/24 13:21 98.1 F 100 20 130/76 98 06/01/24 12:53 18 06/01/24 12:21 99.6 F 98 16 138/76 91 L 06/01/24 12:16 99.6 F 118 H 20 145/90 88 L Intake and Output 06/01/24 06/02/24 06/02/24 22:59 06:59 14:59 Other: Voiding Method Toilet Toilet Urinal Urinal # Voids 2 Weight 104.326 kg 101.5 kg In general patient is alert and oriented -3 in no distress HEENT head normocephalic and atraumatic Neck is supple no JVD no goiter no lymphadenopathy no carotid bruit Chest examination revealed bibasilar crackles no wheezing Cardiac exam reveals regular heart sounds S1 and S2 no gallops no murmurs Abdomen is soft nontender no organomegaly with normal bowel sounds Extremity exam reveals no edema no cyanosis or clubbing Neurological examination reveals no gross focal deficits Results CBC & Chem 7: 06/01/24 12:23 06/01/24 12:23 Labs: Abnormal Lab Results - Last 24 Hours (Table) 06/01/24 06/01/24 06/01/24 Range/Units 12:23 12:23 12:23 WBC 20.5 H (3.8-10.6) k/uL RBC 4.22 L (4.30-5.90) m/uL Hgb 12.8 L (13.0-17.5) gm/dL Plt Count 574 H (150-450) k/uL Neutrophils # 17.7 H (1.3-7.7) k/uL PT 66.7 H (10.0-12.5) sec INR 6.7 H* (<1.2) APTT 50.3 H (22.0-30.0) sec Sodium 134 L (137-145) mmol/L Chloride 95 L (98-107) mmol/L BUN 22 H (9-20) mg/dL Glucose 443 H (74-99) mg/dL POC Glucose (mg/dL) (70-110) mg/dL Magnesium 1.5 L (1.6-2.3) mg/dL Alkaline Phosphatase 127 H (38-126) U/L Urine Protein (Negative) Urine Glucose (UA) (Negative) Urine Blood (Negative) Urine RBC (0-5) /hpf Influenza Type A (PCR) (Not Detectd) 06/01/24 06/01/24 06/01/24 Range/Units 12:23 12:37 17:52 WBC (3.8-10.6) k/uL RBC (4.30-5.90) m/uL Hgb (13.0-17.5) gm/dL Plt Count (150-450) k/uL Neutrophils # (1.3-7.7) k/uL PT (10.0-12.5) sec INR (<1.2) APTT (22.0-30.0) sec Sodium (137-145) mmol/L Chloride (98-107) mmol/L BUN (9-20) mg/dL Glucose (74-99) mg/dL POC Glucose (mg/dL) 313 H (70-110) mg/dL Magnesium (1.6-2.3) mg/dL Alkaline Phosphatase (38-126) U/L Urine Protein Trace H (Negative) Urine Glucose (UA) 4+ H (Negative) Urine Blood Small H (Negative) Urine RBC 17 H (0-5) /hpf Influenza Type A (PCR) Detected A (Not Detectd) 06/01/24 06/02/24 06/02/24 Range/Units 20:15 05:33 09:11 WBC (3.8-10.6) k/uL RBC (4.30-5.90) m/uL Hgb (13.0-17.5) gm/dL Plt Count (150-450) k/uL Neutrophils # (1.3-7.7) k/uL PT 40.9 H (10.0-12.5) sec INR 4.1 H (<1.2) APTT (22.0-30.0) sec Sodium (137-145) mmol/L Chloride (98-107) mmol/L BUN (9-20) mg/dL Glucose (74-99) mg/dL POC Glucose (mg/dL) 214 H 204 H (70-110) mg/dL Magnesium (1.6-2.3) mg/dL Alkaline Phosphatase (38-126) U/L Urine Protein (Negative) Urine Glucose (UA) (Negative) Urine Blood (Negative) Urine RBC (0-5) /hpf Influenza Type A (PCR) (Not Detectd) Microbiology - Last 24 Hours (Table) 06/01/24 12:23 Blood Culture Gram Stain - Preliminary Blood Blood Culture - Preliminary Molecular ID Thrombosis Risk Factor Assmnt - Choose All That Apply Each Factor Represents 1 point: Obesity (BMI >25) Each Risk Factor Represents 2 Points: Age 61-74 years Each Risk Factor Represents 3 Points: History of DVT/PE Thrombosis Risk Factor Assessment Total Risk Factor Score: 6 Thrombosis Risk Factor Assessment Level: High Risk Assessment and Plan Plan: Acute influenza A infection Acute hypoxic respiratory failure Bibasilar lung infiltrates, possible secondary bacterial pneumonia Leukocytosis Atrial fibrillation with rapid ventricular response on presentation requiring Cardizem drip Underlying history of diabetes mellitus with hypercalcemia and positive ketones Coagulopathy with supratherapeutic INR of 6.7 on presentation Underlying history of hypertension Underlying history of hyperlipidemia Underlying history of cardiac arrhythmia with history of AICD placement Previous history of pulmonary embolism Previous history of cardiopulmonary arrest in 2019 secondary to massive pulmonary embolism Underlying history of obstructive sleep apnea Underlying history of morbid obesity BMI of 32.1 Patient was seen and examined Home medications reviewed and reordered, insulin sliding scale was added Coumadin is on hold due to elevated INR will monitor daily At this time patient was started on IV antibiotics Procalcitonin level is pending Cardiology and pulmonary are following
[2024-06-02] MEDS ORDERED: AZITHROMYCIN 500 MG TAB PO SCH (15:00)
[2024-06-02 16:19] LABS: Glucose,Whole Blood 330 mg/dL (70-110)
[2024-06-02] MEDS: INSULIN ASPART (NovoLOG) 100 UNIT/ML VIAL SQ SCH (16:23)
[2024-06-02 20:31] LABS: Glucose,Whole Blood 203 mg/dL (70-110)
[2024-06-02] MEDS: ACETAMINOPHEN TAB 325 MG TAB PO PRN (23:18)
[2024-06-03 06:01] LABS: Glucose,Whole Blood 225 mg/dL (70-110)
[2024-06-03 08:41] LABS: Prothrombin Time 30.2 sec (10.0-12.5)
--- NOTE | 2024-06-03 10:30 | P.PN ---
Subjective Progress Note Date: 06/03/24 Andrez Cobb, is a 74-year-old male who presented to [facility] emergency room with a chief complaint of cough and worsening shortness of breath He was evaluated in the emergency room vital examination on presentation revealed temperature 97.7 pulse 97 respiration 16 blood pressure 129/72 pulse ox 93% on room air Laboratory data revealed a white blood count of 20.5 hemoglobin 12.8 platelet count 578 INR was elevated at 6.7 sodium 134 potassium 4.1 chloride 95 CO2 27 BUN 22 creatinine 0.74 influenza A PCR was positive Testing in the emergency room revealed chest x-ray done in the emergency room revealed patchy right lower lung airspace opacity concerning for pneumonia Patient was admitted to medical floor for further evaluation and treatment On 06/03/2024 patient is alert and oriented x 3. Patient noted to have positive blood culture. Infectious disease services have been consulted cardiology and pulmonary services following. At this time patient denies chest pain or shor tness of breath. Patient denies nausea vomiting or diarrhea. Patient denies any urinary burning or frequency. Current vital signs temp 97.9, heart 64, respiratory rate 20, blood pressure 111/61 with a pulse ox of 95% on room air Objective - Vital Signs Vital signs: Vital Signs Temp 97.9 F 06/03/24 07:34 Pulse 64 06/03/24 07:34 Resp 20 06/03/24 07:34 BP 111/61 06/03/24 07:34 Pulse Ox 95 06/03/24 07:34 FiO2 Intake & Output 06/02/24 06/03/24 06/03/24 18:59 06:59 18:59 Intake Total 360 90 Balance 360 90 Weight 100.8 kg Intake: Oral 360 90 Other: Voiding Method Toilet Toilet Toilet Urinal Urinal Urinal # Voids 2 1 1 # Bowel Movements 1 - Exam In general patient is alert and oriented -3 in no distress HEENT head normocephalic and atraumatic Neck is supple no JVD no goiter no lymphadenopathy no carotid bruit Chest examination revealed bibasilar crackles no wheezing Cardiac exam reveals regular heart sounds S1 and S2 no gallops no murmurs Abdomen is soft nontender no organomegaly with normal bowel sounds Extremity exam reveals no edema no cyanosis or clubbing Neurological examination reveals no gross focal deficits - Labs CBC & Chem 7: 06/01/24 12:23 06/01/24 12:23 Labs: Abnormal Lab Results - Last 24 Hours (Table) 06/02/24 06/02/24 06/02/24 Range/Units 11:13 16:17 20:29 PT (10.0-12.5) sec INR (<1.2) POC Glucose (mg/dL) 325 H 330 H 203 H (70-110) mg/dL 06/03/24 06/03/24 Range/Units 06:00 07:31 PT 30.2 H (10.0-12.5) sec INR 3.0 H (<1.2) POC Glucose (mg/dL) 225 H (70-110) mg/dL Microbiology - Last 24 Hours (Table) 06/01/24 12:23 Blood Culture Gram Stain - Preliminary Blood Blood Culture - Preliminary Staphylococcus hominis Molecular ID 06/02/24 09:10 Gram Stain - Preliminary Sputum Assessment and Plan Plan: Acute influenza A infection Acute hypoxic respiratory failure Bibasilar lung infiltrates, possible secondary bacterial pneumonia Leukocytosis with positive blood culture Atrial fibrillation with rapid ventricular response on presentation requiring Cardizem drip Underlying history of diabetes mellitus with hypercalcemia and positive ketones Coagulopathy with supratherapeutic INR of 6.7 on presentation Underlying history of hypertension Underlying history of hyperlipidemia Underlying history of cardiac arrhythmia with history of AICD placement Previous history of pulmonary embolism Previous history of cardiopulmonary arrest in 2019 secondary to massive pulmonary embolism Underlying history of obstructive sleep apnea Underlying history of morbid obesity BMI of 32.1 Patient was seen and examined Home medications reviewed and reordered, insulin sliding scale was added Coumadin is on hold due to elevated INR will monitor daily At this time patient was started on IV antibiotics Procalcitonin level is pending Cardiology and pulmonary are following
[2024-06-03 11:48] LABS: Glucose,Whole Blood 202 mg/dL (70-110)
--- NOTE | 2024-06-03 12:22 | P.PN ---
Subjective Progress Note Date: 06/03/24 Principal diagnosis: Pneumonia. This is a very pleasant 74-year-old male patient with a known history of atrial fibrillation and maintained on warfarin, AICD placement, hypertension, hyperlipidemia, diabetes mellitus. He has a 3-week history of increasing shortness of breath, cough and congestion. He presented here to the emergency room with worsening shortness of breath. X-ray does reveal a patchy right lower lobe airspace opacity concerning for pneumonia versus atelectasis. He did have some atrial fibrillation with has been initiated on Cardizem drip at 5 mg/h. White count 20.5. Hemoglobin 12.8. Platelets 574. INR 6.7. Sodium 134. Potassium 4.1. Bicarb 27. BUN 22. Creatinine 0.7. Glucose 443. Troponin negative x 1. proBNP 782. Urinalysis with 4+ ketones. Acetone negative. Viral screening positive for influenza A. He is seen today in consultation in the emergency department. He is currently sitting up on a stretcher. Awake and alert in mild respiratory distress. He has a loose nonproductive cough. He is maintaining O2 saturations in the 90s on 2 L/min per nasal cannula. He has been afebrile. Hemodynamically stable. Progress note dated June 02, 2024. 74-year-old male seen in consultation yesterday. Please see the note above. Th e patient was admitted with a diagnosis of influenza, and possible pneumonia. He is currently on room air. He is not receiving any IV fluids. He did test positive for influenza A. His procalcitonin level was 0.11. Antibiotics will be discontinued. The patient is feeling well, without complaints. He states he is feeling much better. Today's blood work includes a glucose of 325. PT was 40.9 with an INR of 4.1. Blood cultures were apparently positive cocci in clusters. Bacteria has yet to be identified. Chest x-ray demonstrates bibasilar infiltrates, and/or atelectasis. Progress note dated June 03, 2024. 74-year-old male seen in room 363. The patient is on room air. He is not receiving any IV fluids. He tested positive for influenza A. His procalcitonin level was 0.11. He has Staphylococcus hominis in his blood, which may be a contaminant. Blood cultures are being repeated. Clinically, the patient is very stable. Current labs include a glucose of 202, PT of 30.2, and an INR of 3.0. Objective - Vital Signs Vital signs: Vital Signs Temp 98.1 F 06/03/24 11:12 Pulse 79 06/03/24 11:12 Resp 20 06/03/24 11:12 BP 112/64 06/03/24 11:12 Pulse Ox 94 L 06/03/24 11:12 FiO2 Intake & Output 06/02/24 06/03/24 06/03/24 18:59 06:59 18:59 Intake Total 360 90 Balance 360 90 Weight 100.8 kg Intake: Oral 360 90 Other: Voiding Method Toilet Toilet Toilet Urinal Urinal Urinal # Voids 2 1 1 # Bowel Movements 1 - Exam No acute distress, oriented 3. HEENT examination is grossly unremarkable. Mucous membranes are moist. No oral lesions. Neck supple. Full range of motion. No adenopathy thyromegaly or neck vein distention. Cardiovascular examination reveals an irregular rhythm and rate. S1-S2 normal. No S3 or S4. No discernible murmur noted. Lungs reveal clear breath sounds. Breath sounds are equal bilaterally. No adventitious lung sounds including wheezes rhonchi or crackles. Abdomen soft bowel sounds are heard. No masses or tenderness. Extremities are intact. No cyanosis clubbing or edema. Skin is without rash or lesion. Neurologic examination is brief but nonfocal. - Labs CBC & Chem 7: 06/01/24 12:23 06/01/24 12:23 Labs: Abnormal Lab Results - Last 24 Hours (Table) 06/02/24 06/02/24 06/03/24 Range/Units 16:17 20:29 06:00 PT (10.0-12.5) sec INR (<1.2) POC Glucose (mg/dL) 330 H 203 H 225 H (70-110) mg/dL 06/03/24 06/03/24 Range/Units 07:31 11:44 PT 30.2 H (10.0-12.5) sec INR 3.0 H (<1.2) POC Glucose (mg/dL) 202 H (70-110) mg/dL Microbiology - Last 24 Hours (Table) 06/02/24 09:10 Gram Stain - Preliminary Sputum Sputum Culture - Preliminary 06/01/24 12:23 Blood Culture Gram Stain - Preliminary Blood Blood Culture - Preliminary Staphylococcus hominis Molecular ID Assessment and Plan Assessment: Acute hypoxic respiratory failure secondary to an acute influenza A infection, much improved. Doubt bacterial pneumonia. Leukocytosis secondary to above. Acute on chronic atrial fibrillation with a rapid ventricular response. Diabetes mellitus with hyperglycemia. Coagulopathy with supra therapeutic INR at 6.7. History of AICD placement. Hypertension. Hyperlipidemia. Plan: Plan dated June 02, 2024. The patient is seen in room 363. The patient is on room air. No IV fluids. The patient has a procalcitonin level of 0.11. Antibiotics are discontinued. He did test positive for influenza A, but he has been having symptoms for a number of days now. Blood cultures apparently are showing gram-positive cocci in clusters. And may be a contaminant. We will await identification. Labs, x- rays, and medications are reviewed. Prognosis is guarded. We will continue to follow the patient, make appropriate recommendations. The patient is a DO NOT RESUSCITATE patient. Plan dated June 03, 2024. The patient is seen today in room 363. The patient was on room air. He is not receiving any IV fluids. His procalcitonin level is normal at 0.11. He did test positive on admission to influenza A. Blood cultures are positive for Staphylococcus hominis. Those cultures are being repeated. Labs, x-rays, medications are reviewed. Clinically, the patient is very stable and would like to be discharged. He is a DO NOT RESUSCITATE patient. We will continue to follow. Time with Patient: Less than 30
--- NOTE | 2024-06-03 13:40 | P.PN ---
Subjective HISTORY OF PRESENT ILLNESS: This is a 74-year-old male with a past medical history significant for paroxysmal atrial fibrillation, pulmonary embolism, cardiac arrest s/p secondary prevention ICD, hypertension, hyperlipidemia, and diabetes. Patient follows in the office with Dr. Sigala. We have been asked to see the patient in consultation for atrial fibrillation. Patient examined at the bedside. Patient presented to the hospital with a chief complaint of shortness of breath. Patient states he has been feeling short of breath for the past couple weeks. He denies having any chest pain or pressure. He denies having any palpitations. The patient was found to be positive for influenza. Pulmonary is also following for possible early right lower lobe pneumonia. He remains on antibiotics. He is maintaining sinus mechanism this morning with PACs and PVCs. Patient was found to have supratherapeutic INR of 6.7. His Coumadin remains on hold. When the patient was seen in the office in March he was prescribed Xarelto as he stated his insurance had improved and could afford it. However the patient states he never started taking this medication and continued with his warfarin. DIAGNOSTICS: - EKG reveals reveals sinus mechanism with PACs - Chest xray patchy right lower lung airspace opacities concerning for pneumonia versus atelectasis - Laboratory data: WBC 20.5. Hemoglobin 12.8. Platelet count 574. INR 6.7. Repeat 4.1. Sodium 134. Potassium 4.1. BUN 22. Creatinine 0.74. Troponin negative x 1. proBNP 782. - Current home cardiac medications include Lipitor 80 mg daily, amlodipine 10 mg daily, hydrochlorothiazide 50 mg daily, metoprolol succinate 25 mg daily, sotalol 80 mg twice a day, losartan 50 mg daily, warfarin 5 mg daily - Most recent echocardiogram obtained in March 2023 revealed ejection fraction 55%, grade 1 diastolic dysfunction, mild to moderate MR and mild to moderate AR - Cardiac catheterization history: Unknown 06/03/2024 Patient examined this morning the bedside. Patient currently denies chest pain or pressure. He denies shortness of breath. He reports having some mild dizziness. Telemetry reveals sinus mechanism. INR today 3.0. Blood cultures are positive for gram-positive cocci in clusters PHYSICAL EXAM: VITAL SIGNS: Reviewed. GENERAL: Well-developed in no acute distress. HEENT: Head is normocephalic. Pupils are equal, round. Sclerae anicteric. Mucous membranes of the mouth are moist. Neck supple. No JVD or thyromegaly LUNGS: Respirations even and unlabored. Lungs essentially clear to auscultation bilaterally. HEART: Regular rate and rhythm. S1 and S2 heard. ABDOMEN: Soft. Nondistended. Nontender. EXTREMITIES: Normal range of motion. No clubbing or cyanosis. Peripheral pulses intact. No lower extremity edema NEUROLOGIC: Awake and alert. Oriented x 3. ASSESSMENT: Shortness of breath Acute influenza Possible right lower lobe pneumonia Paroxysmal atrial fibrillation, maintaining sinus mechanism with PACs Supratherapeutic INR Bacteremia, blood cultures positive for gram-positive cocci in clusters History of pulmonary embolism/DVT History of cardiopulmonary arrest, 2019, secondary to massive PE Status post secondary prevention ICD Hypertension Hyperlipidemia Obstructive sleep apnea Diabetes Obesity: BMI 32.1 PLAN: 2D echo obtained and read. However, report not available at this time. Will contact echo team tomorrow for final report. Continue to hold Coumadin. Monitor INR. Begin Xarelto or Eliquis when coagulopathy resolves. ([facility] Continue telemetry monitoring Further recommendations pending patient course Nurse practitioner note has been reviewed by physician. Signing provider agrees with the documented findings, assessment, and plan of care documented by [employer] as a scribe. Objective - Vital Signs Vital signs: Vital Signs Temp 98.1 F 06/03/24 11:12 Pulse 79 06/03/24 13:28 Resp 20 06/03/24 11:12 BP 112/64 06/03/24 11:12 Pulse Ox 94 L 06/03/24 11:12 FiO2 Intake & Output 06/02/24 06/03/24 06/03/24 18:59 06:59 18:59 Intake Total 360 90 Balance 360 90 Weight 100.8 kg Intake: Oral 360 90 Other: Voiding Method Toilet Toilet Toilet Urinal Urinal Urinal # Voids 2 1 1 # Bowel Movements 1 - Labs CBC & Chem 7: 06/01/24 12:23 06/01/24 12:23 Labs: Abnormal Lab Results - Last 24 Hours (Table) 06/02/24 06/02/24 06/03/24 Range/Units 16:17 20:29 06:00 PT (10.0-12.5) sec INR (<1.2) POC Glucose (mg/dL) 330 H 203 H 225 H (70-110) mg/dL 06/03/24 06/03/24 Range/Units 07:31 11:44 PT 30.2 H (10.0-12.5) sec INR 3.0 H (<1.2) POC Glucose (mg/dL) 202 H (70-110) mg/dL Microbiology - Last 24 Hours (Table) 06/02/24 09:10 Gram Stain - Preliminary Sputum Sputum Culture - Preliminary 06/01/24 12:23 Blood Culture Gram Stain - Preliminary Blood Blood Culture - Preliminary Staphylococcus hominis Molecular ID
[2024-06-03 16:46] LABS: Glucose,Whole Blood 248 mg/dL (70-110)
[2024-06-03 20:13] LABS: Glucose,Whole Blood 291 mg/dL (70-110)
--- NOTE | 2024-06-03 22:19 | P.CONS ---
History of Present Illness - Reason for Consult Consult date: 06/03/24 Positive blood culture and flu Requesting physician: Melissa Hart - Chief Complaint Cough generalized bodyaches x few days - History of Present Illness Patient is a 74-year-old male past medical history significant for diabetes mellitus hypertension hyperlipidemia presenting to the hospital for evaluation of increasing shortness of breath and cough patient symptom has been going on for about a week before presentation to the hospital patient was describing cough to moderate intensity and bringing up some yellow-green sputum no hemoptysis did not record any high-grade fever or any chills patient was initially evaluated in urgent care and noticed to have elevated blood sugar and the patient was subsequently sent to the ER for further evaluation on present ation to the hospital patient did have low-grade fever of 99.6 subsequently temperature has normalized patient was not tachycardic hypotensive or hypoxic and no need for supplemental oxygen patient did have a white count of 20,000 on admission with a left shift creatinine 0.74 electrolyte has been normal liver enzymes are normal procalcitonin 0.11 tested positive for influenza A RSV COVID testing was negative blood cultures came positive with Staphylococcus hominis patient chest x-ray patchy right lower lung airspace opacities concerning for pneumonia versus atelectasis infectious disease was consulted today regarding pneumonia and positive blood culture and influenza A Review of Systems Positive point and negatives has been mentioned in the HPI, complete review of systems was performed and all other systems are negative Past Medical History Past Medical History: Diabetes Mellitus, Hyperlipidemia, Hypertension Additional Past Medical History / Comment(s): Blood clot post-op History of Any Multi-Drug Resistant Organisms: None Reported Past Surgical History: Heart Catheterization Additional Past Surgical History / Comment(s): AICD Past Anesthesia/Blood Transfusion Reactions: No Reported Reaction Past Psychological History: No Psychological Hx Reported Smoking Status: Former smoker Medications and Allergies Home Medications Medication Instructions Recorded Confirmed Type Atorvastatin [Lipitor] 80 mg PO DAILY 06/01/24 06/01/24 History Losartan [Cozaar] 50 mg PO DAILY 06/01/24 06/01/24 History Multivitamins, Thera [Multivitamin 1 tab PO DAILY 06/01/24 06/01/24 History (formulary)] Semaglutide [Ozempic] 0.5 mg SQ TH 06/01/24 06/01/24 History Sotalol [Betapace] 80 mg PO BID 06/01/24 06/01/24 History amLODIPine [Norvasc] 10 mg PO DAILY 06/01/24 06/01/24 History glipiZIDE 5 mg PO AC-BID 06/01/24 06/01/24 History hydroCHLOROthiazide [Hydrodiuril] 50 mg PO DAILY 06/01/24 06/01/24 History metFORMIN HCL [Glucophage] 1,000 mg PO BID-W/MEALS 06/01/24 06/01/24 History Apixaban [Eliquis] 5 mg PO BID #60 tab 06/04/24 Rx Metoprolol Succinate (ER) [Toprol 50 mg PO DAILY 30 Days #30 tab 06/04/24 Rx XL] cefuroxime axetiL [Ceftin] 500 mg PO BID 5 Days #10 tab 06/04/24 Rx Allergies Allergy/AdvReac Type Severity Reaction Status Date / Time No Known Allergies Allergy Verified 06/01/24 14:51 Physical Exam Vitals: Vital Signs Temp Pulse Resp BP Pulse Ox 06/03/24 07:34 97.9 F 64 20 111/61 95 06/03/24 04:09 98.3 F 76 18 108/49 93 L 06/03/24 02:00 70 06/03/24 00:00 98.3 F 70 18 110/58 93 L 06/02/24 20:59 84 06/02/24 20:00 98.2 F 84 18 124/76 93 L 06/02/24 15:22 98.5 F 61 16 111/62 95 06/02/24 13:43 60 06/02/24 11:05 98.4 F 60 16 103/58 96 Intake and Output 06/02/24 06/03/24 06/03/24 22:59 06:59 14:59 Other: Voiding Method Toilet Toilet Toilet Urinal Urinal Urinal # Voids 2 1 Weight 100.8 kg GENERAL DESCRIPTION: Elderly male lying in bed, no distress. No tachypnea or accessory muscle of respiration use. HEENT: Shows Pallor , no scleral icterus. Oral mucous membrane is dry. NECK: Trachea central, no thyromegaly. LUNGS: Unlabored breathing. Decreased breath sound at the base no wheeze or crackle. HEART: S1, S2, regular rate and rhythm. No loud murmur ABDOMEN: Soft, no tenderness , guarding or rigidity, no organomegaly EXTREMITIES: No edema of feet. SKIN: No rash, no masses palpable. NEUROLOGICAL: The patient is awake, alert, oriented x3, mood and affect normal. Results CBC & Chem 7: 06/04/24 15:05 06/04/24 06:21 Labs: Abnormal Lab Results - Last 24 Hours (Table) 06/02/24 06/02/24 06/02/24 Range/Units 09:11 11:13 16:17 PT 40.9 H (10.0-12.5) sec INR 4.1 H (<1.2) POC Glucose (mg/dL) 325 H 330 H (70-110) mg/dL 06/02/24 06/03/24 06/03/24 Range/Units 20:29 06:00 07:31 PT 30.2 H (10.0-12.5) sec INR 3.0 H (<1.2) POC Glucose (mg/dL) 203 H 225 H (70-110) mg/dL Microbiology - Last 24 Hours (Table) 06/02/24 09:10 Gram Stain - Preliminary Sputum 06/01/24 12:23 Blood Culture Gram Stain - Preliminary Blood Blood Culture - Preliminary Molecular ID Assessment and Plan (1) Positive blood culture Status: Acute Code(s): R78.81 - BACTEREMIA SNOMED Code(s): 476948862 (2) Influenza A Status: Acute Code(s): J10.1 - FLU DUE TO OTH IDENT INFLUENZA VIRUS W OTH RESP MANIFEST SNOMED Code(s): 767353111 (3) Leukocytosis Status: Acute Code(s): D72.829 - ELEVATED WHITE BLOOD CELL COUNT, UNSPECIFIED SNOMED Code(s): 464384192 Plan: 1patient with a positive blood culture with Staphylococcus hominis more likely significant emanation as the patient has no clinical disease to go along with it and no need for vancomycin blood culture will be repeated document clearance 2-patient also tested positive for influenza A however the patient's symptoms has been going on for more than a week before presentation to the hospital and is currently out of the therapeutic window for any benefit from Tamiflu and the patient already mentioning improvement in his symptoms 3we will repeat a blood culture with a.m. lab and check a CBC and inflammatory markers We will follow on clinical condition and cultures to further adjust medication if needed Thank you for this consultation we will follow the patient along with you Dictation was produced using [email or web address] dictation software. please excuse any grammatical, word or spelling errors. Time with Patient: Greater than 30
[2024-06-04 04:12] VITALS: TEMP 98.1
[2024-06-04 06:02] LABS: Glucose,Whole Blood 276 mg/dL (70-110)
[2024-06-04 07:04] LABS: Basophils # (A) 0.1 k/uL (0-0.2); Basophils % (A) 0 %; Eosinophils # (A) 0.1 k/uL (0-0.7); Eosinophils % (A) 1 %; HCT 36.6 % (39.0-53.0); HGB 11.7 gm/dL (13.0-17.5); Lymphocytes # (A) 2.6 k/uL (1.0-4.8); Lymphocytes % (A) 20 %; MCH 29.8 pg (25.0-35.0); MCV 93.1 fL (80.0-100.0); Mean Platelet Volume 7.7; Monocytes # (A) 0.8 k/uL (0-1.0); Monocytes % (A) 6 %; Neutrophils # (A) 9.4 k/uL (1.3-7.7); Neutrophils % (A) 72 %; Platelet Count 453 k/uL (150-450); RBC 3.93 m/uL (4.30-5.90); RDW 13.1 % (11.5-15.5); WBC 13.1 k/uL (3.8-10.6)
[2024-06-04 07:22] LABS: INR 2.1 (<1.2); Prothrombin Time 20.8 sec (10.0-12.5)
[2024-06-04 07:23] LABS: ALT 26 U/L (4-49); AST 28 U/L (17-59); African American GFR (CKD) >90 (>60 ml/min/1.73 sqM); Albumin 3.2 g/dL (3.5-5.0); Alkaline Phosphatase 114 U/L (38-126); Anion Gap 13 mmol/L; Blood Urea Nitrogen 17 mg/dL (9-20); C Reactive Protein 7.7 mg/dL (<1.0); Calcium 8.8 mg/dL (8.4-10.2); Carbon Dioxide 26 mmol/L (22-30); Chloride 97 mmol/L (98-107); Glucose 287 mg/dL (74-99); Non-African American GFR(CKD) >90 (>60 ml/min/1.73 sqM); Sodium 136 mmol/L (137-145); Total Bilirubin 0.4 mg/dL (0.2-1.3); Total Protein 6.8 g/dL (6.3-8.2)
[2024-06-04 11:12] LABS: Glucose,Whole Blood 274 mg/dL (70-110)
[2024-06-04 12:49] VITALS: BP 161/83; PULSE 66; RESP 18
--- NOTE | 2024-06-04 13:42 | CA ---
Transthoracic Echo Report Name: Andrez Cobb Age: 74 Gender: M : 1950 Exam Date: 06/02/2024 10:16 Exam Location: [facility] Ht (in): 70 Wt (lb): 230 Ordering Physician: Ashley Field Attending/Referring Phys: [id number], Emir [employer] Eligibility Assistant Melanie Desai, ANGELO Procedure CPT: Indications: LV function, Afib, +flu Cardiac Hx: Technical Quality: Fair Contrast 1: Total Dose (mL): Contrast 2: Total Dose (mL): MEASUREMENTS (Male / Female) Normal Values 2D ECHO LV Diastolic Diameter PLAX 4.5 cm 4.2 - 5.9 / 3.9 - 5.3 cm IVS Diastolic Thickness 1.4 cm 0.6 - 1.0 / 0.6 - 0.9 cm LVPW Diastolic Thickness 1.6 cm 0.6 - 1.0 / 0.6 - 0.9 cm LV Relative Wall Thickness 0.7 RV Internal Dim ED PLAX 2.3 cm LVOT Diameter 2.4 cm LV Diastolic Volume MOD BP 84.3 cm??? 67 - 155 / 56 - 104 cm??? LV Systolic Volume MOD BP 42.8 cm??? 22 - 58 / 19 - 49 cm??? LV Ejection Fraction MOD BP 49.2 % >= 55 % LV Cardiac Index MOD BP 1297.3 cm???/min???m??? LV Diastolic Volume MOD 4C 118.6 cm??? LV Systolic Volume MOD 4C 59.4 cm??? LV Ejection Fraction MOD 4C 49.9 % LV Cardiac Index MOD 4C 1850.3 cm???/min???m??? LV Diastolic Length 4C 9.1 cm LV Systolic Length 4C 7.3 cm LV Diastolic Volume MOD 2C 56.7 cm??? LV Systolic Volume MOD 2C 28.5 cm??? LV Ejection Fraction MOD 2C 49.7 % LV Cardiac Index MOD 2C 881.7 cm???/min???m??? LV Diastolic Length 2C 7.9 cm LV Systolic Length 2C 6.6 cm M-MODE Aortic Root Diameter MM 3.5 cm LA Systolic Diameter MM 4.0 cm LA Ao Ratio MM 1.2 AV Cusp Separation MM 1.0 cm DOPPLER AV Peak Velocity 246.8 cm/s AV Peak Gradient 24.4 mmHg AV Mean Velocity 179.1 cm/s AV Mean Gradient 14.4 mmHg AV Velocity Time Integral 52.1 cm LVOT Peak Velocity 99.3 cm/s LVOT Peak Gradient 3.9 mmHg LVOT Velocity Time Integral 26.0 cm LVOT Stroke Volume 113.3 cm??? LVOT Stroke Volume Index 51.2 ml/m??? LVOT Cardiac Index 3542.6 cm???/min???m??? AV Area Cont Eq vti 2.2 cm??? AV Area Cont Eq pk 1.8 cm??? TR Peak Velocity 264.2 cm/s TR Peak Gradient 27.9 mmHg Right Ventricular Systolic Press 37.9 mmHg FINDINGS Left Ventricle Left ventricular ejection fraction is estimated at 45-50%. Moderately increased septal wall thickness. Mildly decreased left ventricular ejection fraction. No obvious regional wall motion abnormalities. Left ventricular cavity size normal. Right Ventricle Normal right ventricular size and function. Mild pulmonary hypertension. Right Atrium Mild right atrial dilatation. Catheter/pacemaker wire in the right atrial cavity. Left Atrium Mild left atrial dilatation. Mitral Valve Structurally normal mitral valve. moderate mitral regurgitation. No mitral stenosis.mitral annular calcification. Aortic Valve Trileaflet aortic valve. Mild aortic stenosis with a peak gradient of 24mmHg and a mean gradient of 14mmHg. Thickened aortic valve. Moderate aortic regurgitation. Tricuspid Valve Structurally normal tricuspid valve. Mild tricuspid regurgitation. No tricuspid stenosis. Pulmonic Valve Pulmonic valve not well visualized. . Mild pulmonic regurgitation. No pulmonic stenosis. Pericardium No pericardial or pleural effusion. Aorta Normal size aortic root and proximal ascending aorta. CONCLUSIONS 1. Mildly impaired low ventricular static function with global hypokinesis 2. A wire is noted in the right ventricle 3. Moderate mitral regurgitation 4. Mild to moderate aortic stenosis with moderate aortic regurgitation 5. Mild tricuspid regurgitation with mild pulmonary hypertension Previewed by: Dr. Saundra Sharp MD (Electronically Signed) Final Date: 02 June 2024 13:50
--- NOTE | 2024-06-04 14:05 | P.PN ---
Subjective HISTORY OF PRESENT ILLNESS: This is a 74-year-old male with a past medical history significant for paroxysmal atrial fibrillation, pulmonary embolism, cardiac arrest s/p secondary prevention ICD, hypertension, hyperlipidemia, and diabetes. Patient follows in the office with Dr. Sigala. We have been asked to see the patient in consultation for atrial fibrillation. Patient examined at the bedside. Patient presented to the hospital with a chief complaint of shortness of breath. Patient states he has been feeling short of breath for the past couple weeks. He denies having any chest pain or pressure. He denies having any palpitations. The patient was found to be positive for influenza. Pulmonary is also following for possible early right lower lobe pneumonia. He remains on antibiotics. He is maintaining sinus mechanism this morning with PACs and PVCs. Patient was found to have supratherapeutic INR of 6.7. His Coumadin remains on hold. When the patient was seen in the office in March he was prescribed Xarelto as he stated his insurance had improved and could afford it. However the patient states he never started taking this medication and continued with his warfarin. DIAGNOSTICS: - EKG reveals reveals sinus mechanism with PACs - Chest xray patchy right lower lung airspace opacities concerning for pneumonia versus atelectasis - Laboratory data: WBC 20.5. Hemoglobin 12.8. Platelet count 574. INR 6.7. Repeat 4.1. Sodium 134. Potassium 4.1. BUN 22. Creatinine 0.74. Troponin negative x 1. proBNP 782. - Current home cardiac medications include Lipitor 80 mg daily, amlodipine 10 mg daily, hydrochlorothiazide 50 mg daily, metoprolol succinate 25 mg daily, sotalol 80 mg twice a day, losartan 50 mg daily, warfarin 5 mg daily - Most recent echocardiogram obtained in March 2023 revealed ejection fraction 55%, grade 1 diastolic dysfunction, mild to moderate MR and mild to moderate AR - Cardiac catheterization history: Unknown 06/03/2024 Patient examined this morning the bedside. Patient currently denies chest pain or pressure. He denies shortness of breath. He reports having some mild dizziness. Telemetry reveals sinus mechanism. INR today 3.0. Blood cultures are positive for gram-positive cocci in clusters 06/04/2024 Patient examined this morning at the bedside. Patient currently denies chest pain or pressure. He denies shortness of breath. Telemetry Veals sinus mechanism. Echocardiogram completed revealing ejection fraction 45 to 50%, moderate MR, mild to moderate aortic stenosis, moderate aortic regurgitation, mild TR, and mild pulm hypertension INR today 2.1. PHYSICAL EXAM: VITAL SIGNS: Reviewed. GENERAL: Well-developed in no acute distress. HEENT: Head is normocephalic. Pupils are equal, round. Sclerae anicteric. Mucous membranes of the mouth are moist. Neck supple. No JVD or thyromegaly LUNGS: Respirations even and unlabored. Lungs essentially clear to auscultation bilaterally. HEART: Regular rate and rhythm. S1 and S2 heard. ABDOMEN: Soft. Nondistended. Nontender. EXTREMITIES: Normal range of motion. No clubbing or cyanosis. Peripheral pulses intact. No lower extremity edema NEUROLOGIC: Awake and alert. Oriented x 3. ASSESSMENT: Shortness of breath Acute influenza Possible right lower lobe pneumonia Paroxysmal atrial fibrillation, maintaining sinus mechanism with PACs Supratherapeutic INR Bacteremia, blood cultures positive for gram-positive cocci in clusters History of pulmonary embolism/DVT History of cardiopulmonary arrest, 2019, secondary to massive PE Status post secondary prevention ICD Hypertension Hyperlipidemia Obstructive sleep apnea Diabetes Obesity: BMI 32.1 PLAN: INR today 2.1. Case management checked co-pay for Eliquis which is $34 a month. Patient may begin Eliquis 5 mg twice a day starting tomorrow evening Continue telemetry monitoring Patient is stable for discharge home today from a cardiac standpoint Further recommendations pending patient course Nurse practitioner note has been reviewed by physician. Signing provider agrees with the documented findings, assessment, and plan of care documented by REFINERY TECHNICIAN as a scribe. Objective - Vital Signs Vital signs: Vital Signs Temp 98.1 F 06/04/24 08:53 Pulse 66 06/04/24 12:48 Resp 18 06/04/24 12:48 BP 161/83 06/04/24 12:48 Pulse Ox 96 06/04/24 12:48 FiO2 Intake & Output 06/03/24 06/04/24 06/04/24 18:59 06:59 18:59 Intake Total 90 260 Balance 90 260 Weight 101 kg Intake: IV 20 Invasive Line 2 20 Oral 90 240 Other: Voiding Method Toilet Toilet Urinal Urinal # Voids 1 # Bowel Movements 1 - Labs CBC & Chem 7: 06/04/24 06:21 06/04/24 06:21 Labs: Abnormal Lab Results - Last 24 Hours (Table) 06/03/24 06/03/24 06/04/24 Range/Units 16:45 20:11 06:01 WBC (3.8-10.6) k/uL RBC (4.30-5.90) m/uL Hgb (13.0-17.5) gm/dL Hct (39.0-53.0) % Plt Count (150-450) k/uL Neutrophils # (1.3-7.7) k/uL PT (10.0-12.5) sec INR (<1.2) Sodium (137-145) mmol/L Chloride (98-107) mmol/L Glucose (74-99) mg/dL POC Glucose (mg/dL) 248 H 291 H 276 H (70-110) mg/dL C-Reactive Protein (<1.0) mg/dL Albumin (3.5-5.0) g/dL 06/04/24 06/04/24 06/04/24 Range/Units 06:21 06:21 06:21 WBC 13.1 H (3.8-10.6) k/uL RBC 3.93 L (4.30-5.90) m/uL Hgb 11.7 L (13.0-17.5) gm/dL Hct 36.6 L (39.0-53.0) % Plt Count 453 H (150-450) k/uL Neutrophils # 9.4 H (1.3-7.7) k/uL PT 20.8 H (10.0-12.5) sec INR 2.1 H (<1.2) Sodium 136 L (137-145) mmol/L Chloride 97 L (98-107) mmol/L Glucose 287 H (74-99) mg/dL POC Glucose (mg/dL) (70-110) mg/dL C-Reactive Protein 7.7 H (<1.0) mg/dL Albumin 3.2 L (3.5-5.0) g/dL 06/04/24 Range/Units 11:10 WBC (3.8-10.6) k/uL RBC (4.30-5.90) m/uL Hgb (13.0-17.5) gm/dL Hct (39.0-53.0) % Plt Count (150-450) k/uL Neutrophils # (1.3-7.7) k/uL PT (10.0-12.5) sec INR (<1.2) Sodium (137-145) mmol/L Chloride (98-107) mmol/L Glucose (74-99) mg/dL POC Glucose (mg/dL) 274 H (70-110) mg/dL C-Reactive Protein (<1.0) mg/dL Albumin (3.5-5.0) g/dL Microbiology - Last 24 Hours (Table) 06/01/24 12:23 Blood Culture Gram Stain - Final Blood Blood Culture - Final Staphylococcus hominis Molecular ID 06/02/24 09:10 Gram Stain - Final Sputum Sputum Culture - Final
--- NOTE | 2024-06-04 15:21 | P.PN ---
Subjective Progress Note Date: 06/04/24 This is a very pleasant 74-year-old male patient with a known history of atrial fibrillation and maintained on warfarin, AICD placement, hypertension, hyperlipidemia, diabetes mellitus. He has a 3-week history of increasing shortness of breath, cough and congestion. He presented here to the emergency r o with worsening shortness of breath. X-ray does reveal a patchy right lower lobe airspace opacity concerning for pneumonia versus atelectasis. He did have some atrial fibrillation with has been initiated on Cardizem drip at 5 mg/h. White count 20.5. Hemoglobin 12.8. Platelets 574. INR 6.7. Sodium 134. Potassium 4.1. Bicarb 27. BUN 22. Creatinine 0.7. Glucose 443. Troponin negative x 1. proBNP 782. Urinalysis with 4+ ketones. Acetone negative. Viral screening positive for influenza A. He is seen today in consultation in the emergency department. He is currently sitting up on a stretcher. Awake and alert in mild respiratory distress. He has a loose nonproductive cough. He is maintaining O2 saturations in the 90s on 2 L/min per nasal cannula. He has been afebrile. Hemodynamically stable. Progress note dated June 02, 2024. 74-year-old male seen in consultation yesterday. Please see the note above. The patient was admitted with a diagnosis of influenza, and possible pneumonia. He is currently on room air. He is not receiving any IV fluids. He did test p ositive for influenza A. His procalcitonin level was 0.11. Antibiotics will be discontinued. The patient is feeling well, without complaints. He states he is feeling much better. Today's blood work includes a glucose of 325. PT was 40.9 with an INR of 4.1. Blood cultures were apparently positive cocci in clusters. Bacteria has yet to be identified. Chest x-ray demonstrates bibasilar infil trates, and/or atelectasis. Progress note dated June 03, 2024. 74-year-old male seen in room 363. The patient is on room air. He is not receiving any IV fluids. He tested positive for influenza A. His procalcitonin level was 0.11. He has Staphylococcus hominis in his blood, which may be a c ontaminant. Blood cultures are being repeated. Clinically, the patient is very stable. Current labs include a glucose of 202, PT of 30.2, and an INR of 3.0. On today's evaluation of 06/04/2024, the patient is being seen for a follow-up. The patient had an acute influenza A infection with secondary hypoxic respiratory failure and the patient is improved considerably. He is currently on room air oxygen with a pulse ox of 96%. He remains on DuoNeb nebulized treatments [id number]. He is also receiving Robitussin DM for cough and congestion. Rest of the medications remain essentially unchanged. He also has chronic atrial fibrillation, and his current current rhythm is sinus mechanism. He has previous history of DVT and pulmonary embolism and the patient has been maintained on anticoagulation with warfarin. His INR currently is at 2.1. In terms of his other medical problems, the patient is known to have cardiomyopathy, and he also has history of hypertension, hyperlipidemia, diabetes mellitus type 2 and obstructive sleep apnea. His current body mass index is 32. He also has a remote history of cardiopulmonary arrest secondary to massive pulmonary embolism back in 2019. He remains on a combination of metoprolol XL 50 mg p.o. daily, sotalol 80 mg p.o. twice daily and anticoagulation as per cardiology. Blood cultures turned out to be positive for Staph hominis. No signs of sepsis. Objective - Vital Signs Vital signs: Vital Signs Temp 98.1 F 06/04/24 08:53 Pulse 79 06/04/24 08:53 Resp 16 06/04/24 08:53 BP 118/63 06/04/24 08:53 Pulse Ox 95 06/04/24 08:53 FiO2 Intake & Output 06/03/24 06/04/24 06/04/24 18:59 06:59 18:59 Intake Total 90 250 Balance 90 250 Weight 101 kg Intake: IV 10 Invasive Line 2 10 Oral 90 240 Other: Voiding Method Toilet Toilet Urinal Urinal # Voids 1 # Bowel Movements 1 - Exam No acute distress, oriented 3. HEENT examination is grossly unremarkable. Mucous membranes are moist. No oral lesions. Neck supple. Full range of motion. No adenopathy thyromegaly or neck vein distention. Cardiovascular examination reveals an irregular rhythm and rate. S1-S2 normal. No S3 or S4. No discernible murmur noted. Lungs reveal clear breath sounds. Breath sounds are equal bilaterally. No adventitious lung sounds including wheezes rhonchi or crackles. Abdomen soft bowel sounds are heard. No masses or tenderness. Extremities are intact. No cyanosis clubbing or edema. Skin is without rash or lesion. Neurologic examination is brief but nonfocal. - Labs CBC & Chem 7: 06/04/24 06:21 06/04/24 06:21 Labs: Abnormal Lab Results - Last 24 Hours (Table) 06/03/24 06/03/24 06/04/24 Range/Units 16:45 20:11 06:01 WBC (3.8-10.6) k/uL RBC (4.30-5.90) m/uL Hgb (13.0-17.5) gm/dL Hct (39.0-53.0) % Plt Count (150-450) k/uL Neutrophils # (1.3-7.7) k/uL PT (10.0-12.5) sec INR (<1.2) Sodium (137-145) mmol/L Chloride (98-107) mmol/L Glucose (74-99) mg/dL POC Glucose (mg/dL) 248 H 291 H 276 H (70-110) mg/dL C-Reactive Protein (<1.0) mg/dL Albumin (3.5-5.0) g/dL 06/04/24 06/04/24 06/04/24 Range/Units 06:21 06:21 06:21 WBC 13.1 H (3.8-10.6) k/uL RBC 3.93 L (4.30-5.90) m/uL Hgb 11.7 L (13.0-17.5) gm/dL Hct 36.6 L (39.0-53.0) % Plt Count 453 H (150-450) k/uL Neutrophils # 9.4 H (1.3-7.7) k/uL PT 20.8 H (10.0-12.5) sec INR 2.1 H (<1.2) Sodium 136 L (137-145) mmol/L Chloride 97 L (98-107) mmol/L Glucose 287 H (74-99) mg/dL POC Glucose (mg/dL) (70-110) mg/dL C-Reactive Protein 7.7 H (<1.0) mg/dL Albumin 3.2 L (3.5-5.0) g/dL 06/04/24 Range/Units 11:10 WBC (3.8-10.6) k/uL RBC (4.30-5.90) m/uL Hgb (13.0-17.5) gm/dL Hct (39.0-53.0) % Plt Count (150-450) k/uL Neutrophils # (1.3-7.7) k/uL PT (10.0-12.5) sec INR (<1.2) Sodium (137-145) mmol/L Chloride (98-107) mmol/L Glucose (74-99) mg/dL POC Glucose (mg/dL) 274 H (70-110) mg/dL C-Reactive Protein (<1.0) mg/dL Albumin (3.5-5.0) g/dL Microbiology - Last 24 Hours (Table) 06/02/24 09:10 Gram Stain - Final Sputum Sputum Culture - Final 06/01/24 12:23 Blood Culture Gram Stain - Preliminary Blood Blood Culture - Preliminary Staphylococcus hominis Molecular ID Assessment and Plan Plan: Acute hypoxic respiratory failure secondary to an acute influenza A infection, much improved. Patient is currently on room air oxygen. Pneumonia is doubtful. Leukocytosis secondary to above, improved and the patient's white cell count is currently down to 13 Acute on chronic atrial fibrillation with a rapid ventricular response, currently in a normal sinus mechanism. The patient has been maintained on a combination of metoprolol XL 50 mg p.o. daily, sotalol 80 mg p.o. twice a day and the patient will be started also on anticoagulation with Eliquis. Diabetes mellitus type II Coagulopathy with supra therapeutic INR at 6.7. Anticoagulation has been placed on hold and the patient will be started on Eliquis as of tomorrow. Most recent INR is down to 2.1 History of AICD placement. Hypertension. Hyperlipidemia. Previous history of DVT and pulmonary embolism Previous history of cardiopulmonary arrest secondary to pulmonary embolism back in 2019, maintained on anticoagulants. Abnormal blood culture with Staph hominis, likely contaminant. No signs of any septicemia Plan: Patient currently on room air oxygen Patient is in normal sinus mechanism Anticoagulation with Eliquis to be started as of tomorrow Continue Toprol 50 mg p.o. daily XL and sotalol 80 mg p.o. twice a day Continue Cozaar 50 mg p.o. daily, in combination with Norvasc 10 mg p.o. daily and HydroDIURIL 50 mg p.o. daily Glucophage 1 g p.o. twice a day in combination with glipizide 5 mg p.o. twice a day Cut down the IV fluids to KVO Monitor the white cell count Repeat procalcitonin level is down to 0.05 Will continue to follow
--- NOTE | 2024-06-04 15:28 | P.DS ---
Providers Date of admission: 06/01/24 14:29 Expected date of discharge: 06/04/24 Attending physician: Melissa Hart Consults: 06/01/24 14:26 Consult Physician Routine Consulting Provider: Jorge L Perez Consult Reason/Comments: Pneumonia, influenza Do you want consulting provider notified?: Yes 06/01/24 14:27 Consult Physician Routine Consulting Provider: Mert Whitaker Consult Reason/Comments: a fib Do you want consulting provider notified?: Yes 06/03/24 08:57 Consult Physician Routine Consulting Provider: Peg Webb Consult Reason/Comments: positive blood culture, flu A Do you want consulting provider notified?: Yes Primary care physician: Melissa Tanner [facility] Course: Diagnosis on discharge: Acute influenza A infection Acute hypoxic respiratory failure Bibasilar lung infiltrates, possible secondary bacterial pneumonia Leukocytosis with positive blood culture Atrial fibrillation with rapid ventricular response on presentation requiring Cardizem drip Underlying history of diabetes mellitus with hypercalcemia and positive ketones Coagulopathy with supratherapeutic INR of 6.7 on presentation Underlying history of hypertension Underlying history of hyperlipidemia Underlying history of cardiac arrhythmia with history of AICD placement Previous history of pulmonary embolism Previous history of cardiopulmonary arrest in 2019 secondary to massive pulmonary embolism Underlying history of obstructive sleep apnea Underlying history of morbid obesity BMI of 32.1 Hospital course: Andrez Cobb, is a 74-year-old male who presented to [facility] emergency room with a chief complaint of cough and worsening shortness of breath He was evaluated in the emergency room vital examination on presentation revealed temperature 97.7 pulse 97 respiration 16 blood pressure 129/72 pulse ox 93% on room air Laboratory data revealed a white blood count of 20.5 hemoglobin 12.8 platelet c ount 578 INR was elevated at 6.7 sodium 134 potassium 4.1 chloride 95 CO2 27 BUN 22 creatinine 0.74 influenza A PCR was positive Testing in the emergency room revealed chest x-ray done in the emergency room revealed patchy right lower lung airspace opacity concerning for pneumonia Patient was admitted to medical floor for further evaluation and treatment On 06/03/2024 patient is alert and oriented x 3. Patient noted to have positive blood culture. Infectious disease services have been consulted cardiology and pulmonary services following. At this time patient denies chest pain or shortness of breath. Patient denies nausea vomiting or diarrhea. Patient denies any urinary burning or frequency. Current vital signs temp 97.9, heart 64, respiratory rate 20, blood pressure 111/61 with a pulse ox of 95% on room air On 06/04/2024 patient was seen and examined on the medical floor he is alert and oriented x 3 in no apparent distress he reports improvement in the cough and shortness of breath otherwise he denies any complaints there is no fever or chills no headache or dizziness no chest pain, no nausea or vomiting no abdominal pain no diarrhea and no urinary symptoms. Input from cardiology, pulmonary and infectious disease reviewed. Patient will be discharged to home today, follow-up in the office in 2 to 3 days. Patient Condition at Discharge: Serious Plan - Discharge Summary Discharge Rx Participant: No New Discharge Prescriptions: New Apixaban [Eliquis] 5 mg PO BID #60 tab Metoprolol Succinate (ER) [Toprol XL] 50 mg PO DAILY 30 Days #30 tab cefuroxime axetiL [Ceftin] 500 mg PO BID 5 Days #10 tab Continue Multivitamins, Thera [Multivitamin (formulary)] 1 tab PO DAILY metFORMIN HCL [Glucophage] 1,000 mg PO BID-W/MEALS glipiZIDE 5 mg PO AC-BID amLODIPine [Norvasc] 10 mg PO DAILY Losartan [Cozaar] 50 mg PO DAILY Sotalol [Betapace] 80 mg PO BID hydroCHLOROthiazide [Hydrodiuril] 50 mg PO DAILY Atorvastatin [Lipitor] 80 mg PO DAILY Semaglutide [Ozempic] 0.5 mg SQ TH Discontinued Warfarin [Coumadin] 5 mg PO W/SUPPER Metoprolol Succinate (ER) [Toprol Xl] 25 mg PO DAILY Discharge Medication List Atorvastatin [Lipitor] 80 mg PO DAILY 06/01/24 [History] Losartan [Cozaar] 50 mg PO DAILY 06/01/24 [History] Multivitamins, Thera [Multivitamin (formulary)] 1 tab PO DAILY 06/01/24 [History] Semaglutide [Ozempic] 0.5 mg SQ TH 06/01/24 [History] Sotalol [Betapace] 80 mg PO BID 06/01/24 [History] amLODIPine [Norvasc] 10 mg PO DAILY 06/01/24 [History] glipiZIDE 5 mg PO AC-BID 06/01/24 [History] hydroCHLOROthiazide [Hydrodiuril] 50 mg PO DAILY 06/01/24 [History] metFORMIN HCL [Glucophage] 1,000 mg PO BID-W/MEALS 06/01/24 [History] Apixaban [Eliquis] 5 mg PO BID #60 tab 06/04/24 [Rx] Metoprolol Succinate (ER) [Toprol XL] 50 mg PO DAILY 30 Days #30 tab 06/04/24 [R x] cefuroxime axetiL [Ceftin] 500 mg PO BID 5 Days #10 tab 06/04/24 [Rx] Follow up Appointment(s)/Referral(s): Melissa Hart MD [Primary Care Provider] - 1-2 days (Please call to schedule follow up appoitment) Patient Instructions/Handouts: Influenza (GEN)
[2024-06-04 15:50] LABS: Basophils # (A) 0.1 k/uL (0-0.2); Basophils % (A) 1 %; Eosinophils # (A) 0.2 k/uL (0-0.7); Eosinophils % (A) 3 %; HCT 43.6 % (39.0-53.0); HGB 14.5 gm/dL (13.0-17.5); Lymphocytes # (A) 3.1 k/uL (1.0-4.8); Lymphocytes % (A) 41 %; MCH 29.7 pg (25.0-35.0); MCHC 33.2 g/dL (31.0-37.0); MCV 89.6 fL (80.0-100.0); Mean Platelet Volume 7.8; Monocytes # (A) 0.5 k/uL (0-1.0); Monocytes % (A) 6 %; Neutrophils # (A) 3.6 k/uL (1.3-7.7); Neutrophils % (A) 48 %; Platelet Count 276 k/uL (150-450); RBC 4.87 m/uL (4.30-5.90); RDW 14.1 % (11.5-15.5); WBC 7.5 k/uL (3.8-10.6)
[2024-06-04 21:40] LABS: Erythrocyte Sedimentation Rate 20 mm/Hr (0-20)
--- NOTE | 2024-06-05 12:54 | P.PN ---
Subjective Progress Note Date: 06/04/24 Principal diagnosis: Reason for follow-up is positive blood culture and influenza Patient is a 74-year-old male past medical history significant for diabetes mellitus hypertension hyperlipidemia presenting to the hospital for evaluation of increasing shortness of breath and cough patient has been diagnosed with influenza A COVID testing was negative did have elevated white count positive blood culture with Staph hominis prompting this infectious disease consultation. On today's evaluation that is 06/04/2023, patient has been afebrile, patient is breathing comfortably and is currently on room air, patient denies having any chest pain and cough is decreased in intensity, patient denies nausea vomiting or diarrhea and no abdominal pain. Patient white count is 7.5 sputum has been negative blood culture repeat so far negative Objective - Vital Signs Vital signs: Vital Signs Temp 98.1 F 06/04/24 08:53 Pulse 79 06/04/24 08:53 Resp 16 06/04/24 08:53 BP 118/63 06/04/24 08:53 Pulse Ox 95 06/04/24 08:53 FiO2 Intake & Output 06/03/24 06/04/24 06/04/24 18:59 06:59 18:59 Intake Total 90 250 Balance 90 250 Weight 101 kg Intake: IV 10 Invasive Line 2 10 Oral 90 240 Other: Voiding Method Toilet Toilet Urinal Urinal # Voids 1 # Bowel Movements 1 - Exam GENERAL DESCRIPTION: An elderly male lying in bed in no distress RESPIRATORY SYSTEM: Unlabored breathing , decreased breath sounds at bases HEART: S1 S2 regular rate and rhythm , ABDOMEN: Soft , no tenderness EXTREMITIES: No edema feet - Labs CBC & Chem 7: 06/04/24 15:05 06/04/24 06:21 Labs: Abnormal Lab Results - Last 24 Hours (Table) 06/03/24 06/03/24 06/04/24 Range/Units 16:45 20:11 06:01 WBC (3.8-10.6) k/uL RBC (4.30-5.90) m/uL Hgb (13.0-17.5) gm/dL Hct (39.0-53.0) % Plt Count (150-450) k/uL Neutrophils # (1.3-7.7) k/uL PT (10.0-12.5) sec INR (<1.2) Sodium (137-145) mmol/L Chloride (98-107) mmol/L Glucose (74-99) mg/dL POC Glucose (mg/dL) 248 H 291 H 276 H (70-110) mg/dL C-Reactive Protein (<1.0) mg/dL Albumin (3.5-5.0) g/dL 06/04/24 06/04/24 06/04/24 Range/Units 06:21 06:21 06:21 WBC 13.1 H (3.8-10.6) k/uL RBC 3.93 L (4.30-5.90) m/uL Hgb 11.7 L (13.0-17.5) gm/dL Hct 36.6 L (39.0-53.0) % Plt Count 453 H (150-450) k/uL Neutrophils # 9.4 H (1.3-7.7) k/uL PT 20.8 H (10.0-12.5) sec INR 2.1 H (<1.2) Sodium 136 L (137-145) mmol/L Chloride 97 L (98-107) mmol/L Glucose 287 H (74-99) mg/dL POC Glucose (mg/dL) (70-110) mg/dL C-Reactive Protein 7.7 H (<1.0) mg/dL Albumin 3.2 L (3.5-5.0) g/dL 06/04/24 Range/Units 11:10 WBC (3.8-10.6) k/uL RBC (4.30-5.90) m/uL Hgb (13.0-17.5) gm/dL Hct (39.0-53.0) % Plt Count (150-450) k/uL Neutrophils # (1.3-7.7) k/uL PT (10.0-12.5) sec INR (<1.2) Sodium (137-145) mmol/L Chloride (98-107) mmol/L Glucose (74-99) mg/dL POC Glucose (mg/dL) 274 H (70-110) mg/dL C-Reactive Protein (<1.0) mg/dL Albumin (3.5-5.0) g/dL Microbiology - Last 24 Hours (Table) 06/01/24 12:23 Blood Culture Gram Stain - Final Blood Blood Culture - Final Staphylococcus hominis Molecular ID 06/02/24 09:10 Gram Stain - Final Sputum Sputum Culture - Final Assessment and Plan (1) Positive blood culture Status: Acute Code(s): R78.81 - BACTEREMIA SNOMED Code(s): 957454648 (2) Influenza A Status: Acute Code(s): J10.1 - FLU DUE TO OTH IDENT INFLUENZA VIRUS W OTH RESP MANIFEST SNOMED Code(s): 956488722 (3) Leukocytosis Status: Acute Code(s): D72.829 - ELEVATED WHITE BLOOD CELL COUNT, UNSPECIFIED SNOMED Code(s): 725824730 Plan: 1patient with a positive blood culture with Staphylococcus hominis more likely significant emanation as the patient has no clinical disease to go along with it and no need for vancomycin blood culture will be repeated document clearance 2-patient also tested positive for influenza A however the patient's symptoms has been going on for more than a week before presentation to the hospital and is currently out of the therapeutic window for any benefit from Tamiflu and the patient already mentioning improvement in his symptoms 3patient blood culture is more likely representing contamination and no need f or vancomycin patient did have elevated white count and patient received a dose of Rocephin may consider 4-day course of oral Ceftin on discharge to finish a 5- day course of therapy for possible community-acquired pneumonia, discussed with the admitting physician Dictation was produced using [employer] dictation software. please excuse any grammatical, word or spelling errors. Time with Patient: Less than 30
== END 2024-06-04 16:41 | disposition home or self-care (01) | DRG 193 ==
LOC: EC 12:09 → 3SCARD 14:29
PROVIDERS: ADMIT Internal Medicine; ATTEND Internal Medicine
DX: J10.00 Influenza due to other identified influenza virus with unspecified type of pneumonia (principal); J96.01 Acute respiratory failure with hypoxia; I42.9 Cardiomyopathy, unspecified; D68.9 Coagulation defect, unspecified; R78.81 Bacteremia; Z68.32 Body mass index [BMI] 32.0-32.9, adult; Z11.52 Encounter for screening for COVID-19; I49.3 Ventricular premature depolarization; I48.0 Paroxysmal atrial fibrillation; I10 Essential (primary) hypertension; G47.33 Obstructive sleep apnea (adult) (pediatric); E78.5 Hyperlipidemia, unspecified; E66.9 Obesity, unspecified; E11.65 Type 2 diabetes mellitus with hyperglycemia; I08.0 Rheumatic disorders of both mitral and aortic valves; Z79.01 Long term (current) use of anticoagulants; Z79.4 Long term (current) use of insulin; Z79.84 Long term (current) use of oral hypoglycemic drugs; Z79.899 Other long term (current) drug therapy; Z86.711 Personal history of pulmonary embolism; Z86.718 Personal history of other venous thrombosis and embolism; Z86.74 Personal history of sudden cardiac arrest; Z95.810 Presence of automatic (implantable) cardiac defibrillator; Z87.891 Personal history of nicotine dependence
CPT/HCPCS: 36415; 71045; 71046; 80053; 81001; 82009; 83605; 83735; 83880; 84145; 84484; 85025; 85610; 85652; 85730; 86140; 87040; 87070; 87077; 87186; 87205; 87449; 87636; 93005; 93306; 96365; 96366; 96368; 99291

== ENCOUNTER → 2024-12-11 | Outpatient (CLI) | payer MEDICARE ==
--- NOTE | 2024-12-11 14:36 | XR ---
EXAMINATION TYPE: XR chest 2V DATE OF EXAM: 12/11/2024 2:26 PM COMPARISON: 06/02/2024 CLINICAL INDICATION: Male, 74 years old with history of R06.02, shortness of breath, worsening at nig ht when sleeping. TECHNIQUE: Frontal and lateral views FINDINGS: Left anterior chest wall ICD generator with right ventricular lead. Heart is mildly enlarged. Diffuse interstitial and vascular density. No consolidation or pleural effusion. IMPRESSION: Mild cardiomegaly with pulmonary vascular congestion. [facility], Workstation: [id number], 12/11/2024 2:33 PM
== END | disposition home or self-care (01) ==
LOC: RADXRMAIN 14:14
PROVIDERS: ATTEND Internal Medicine
DX: R06.02 Shortness of breath (principal); R09.89 Other specified symptoms and signs involving the circulatory and respiratory systems
CPT/HCPCS: 71046